=== PATIENT | female | born 1940 | race Caucasian/White ===

== ENCOUNTER 2020-12-27 12:11 | Inpatient (IN) | payer MEDICARE, OTHER ==
[~2020-12-27] VITALS: Ht 172.7 cm; Wt 86.9 kg
[2020-12-27 12:53] LABS: BASO % 0 % (0-3); EOS % 0 % (0-3); HEMATOCRIT 39.8 % (36.0-47.0); HEMOGLOBIN 13.6 g/dL (12.0-15.5); LYMPH # 1.3 x10^3/uL (1.0-4.8); LYMPH % 15 % (24-48); MEAN CORPUSCULAR HEMOGLOBIN 31 pg (25-35); MEAN CORPUSCULAR HGB CONC 34 g/dL (31-37); MEAN CORPUSCULAR VOLUME 90 fL (79-100); MONO # 0.6 x10^3/uL (0.0-1.1); MONO % 7 % (0-9); NEUT # 6.6 x10^3/uL (1.8-7.7); NEUT % 77 % (31-73); PLATELET COUNT 163 x10^3/uL (140-400); RED BLOOD COUNT 4.44 x10^6/uL (3.50-5.40); WHITE BLOOD COUNT 8.6 x10^3/uL (4.0-11.0)
--- NOTE | 2020-12-27 13:01 | EKG ---
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
[2020-12-27 13:18] LABS: CALCIUM 9.1 mg/dL (8.5-10.1); GFR 53.1; POTASSIUM 3.8 mmol/L (3.5-5.1)
--- NOTE | 2020-12-27 13:18 | RAD ---
XR CHEST 1V INDICATION: soa . COMPARISON STUDY: None. FINDINGS: Lungs: Normal lung volume. Prominent interstitial marked. Pleura: Small bilateral pleural effusions. Heart and Mediastinum: Cardiomegaly. Atherosclerosis of the thoracic aorta. IMPRESSION: 1. Prominent interstitial markings, which may reflect interstitial edema. 2. Small bilateral pleural effusions. Electronically signed by: Rosalio Pink MD (12/27/2020 1:16 PM) [facility]
[2020-12-27 13:23] LABS: ALBUMIN 3.8 g/dL (3.4-5.0); ALBUMIN/GLOBULIN RATIO 1.2 (1.0-1.7); TOTAL BILIRUBIN 1.6 mg/dL (0.2-1.0)
--- NOTE | 2020-12-27 13:31 | PHYS DOC ---
Past Medical History Past Medical History: Diabetes-Type II, Hypertension Additional Past Medical Histor: EDEMA Past Surgical History: No Surgical History Smoking Status: Never Smoker Alcohol Use: None General Adult EDM: Chief Complaint: shortness of air. HPI: HPI: Patient is a 80 year old female who presents to ER for evaluation of worsening trouble breathing and swelling of her leg, body and her face for over a month. Patient has been evaluated by her family physician, was put on some medication but did not get any better. Patient is having trouble breathing with exertion. She denies any cough or fever. Patient denies any COVID-19 exposure. Patient has history of aortic stenosis, her last echo cardiogram was done about 5 years ago with an EF of 55%. Review of Systems: Review of Systems: Constitutional: Denies fever or chills. [] Eyes: Denies change in visual acuity. [] HENT: Denies nasal congestion or sore throat. [] Respiratory: Denies cough, positive for shortness of breath. [] Cardiovascular: Denies chest pain, Positive for edema. [] GI: Denies abdominal pain, nausea, vomiting, bloody stools or diarrhea. [] : Denies dysuria. [] Musculoskeletal: Denies back pain or joint pain. [] Integument: Denies rash. [] Neurologic: Denies headache, focal weakness or sensory changes. [] Endocrine: Denies polyuria or polydipsia. [] Lymphatic: Denies swollen glands. [] Psychiatric: Denies depression or anxiety. [] Heart Score: Risk Factors: Risk Factors: DM, Current or recent (<one month) smoker, HTN, HLP, family his tory of CAD, obesity. Risk Scores: Score 0 - 3: 2.5% MACE over next 6 weeks - Discharge Home Score 4 - 6: 20.3% MACE over next 6 weeks - Admit for Clinical Observation Score 7 - 10: 72.7% MACE over next 6 weeks - Early Invasive Strategies Allergies: Allergies: Allergies Coded Allergies Type Severity Reaction Last Updated Verified No Known Drug Allergies 12/27/20 No Physical Exam: PE: Constitutional: Well developed, well nourished, no acute distress, non-toxic appearance. [] HENT: Normocephalic, atraumatic, bilateral external ears normal, oropharynx moist, no oral exudates, nose normal. [] Eyes: PERRLA, EOMI, conjunctiva normal, no discharge. Periorbital edema Neck: Normal range of motion, no tenderness, supple, no stridor. [] Cardiovascular:Heart rate regular rhythm, LOUD SYSTOLIC MURMUR, Lungs & Thorax: Bilateral breath sounds with rales to auscultation [] Abdomen: Bowel sounds normal, soft, no tenderness, no masses, no pulsatile masses. [] Skin: Warm, dry, no erythema, no rash. [] Back: No tenderness, no CVA tenderness. [] Extremities: No tenderness, no cyanosis, no clubbing, ROM intact, PITTING EDEMA 4 PLUS. Neurologic: Alert and oriented X 3, normal motor function, normal sensory function, no focal deficits noted. [] Psychologic: Affect normal, judgement normal, mood normal. [] Current Patient Data: Labs: Laboratory Tests Test 12/27/20 12:42 White Blood Count 8.6 x10^3/uL (4.0-11.0) Red Blood Count 4.44 x10^6/uL (3.50-5.40) Hemoglobin 13.6 g/dL (12.0-15.5) Hematocrit 39.8 % (36.0-47.0) Mean Corpuscular Volume 90 fL (79-100) Mean Corpuscular Hemoglobin 31 pg (25-35) Mean Corpuscular Hemoglobin Concent 34 g/dL (31-37) Red Cell Distribution Width 15.0 % (11.5-14.5) H Platelet Count 163 x10^3/uL (140-400) Neutrophils (%) (Auto) 77 % (31-73) H Lymphocytes (%) (Auto) 15 % (24-48) L Monocytes (%) (Auto) 7 % (0-9) Eosinophils (%) (Auto) 0 % (0-3) Basophils (%) (Auto) 0 % (0-3) Neutrophils # (Auto) 6.6 x10^3/uL (1.8-7.7) Lymphocytes # (Auto) 1.3 x10^3/uL (1.0-4.8) Monocytes # (Auto) 0.6 x10^3/uL (0.0-1.1) Eosinophils # (Auto) 0.0 x10^3/uL (0.0-0.7) Basophils # (Auto) 0.0 x10^3/uL (0.0-0.2) Sodium Level 121 mmol/L (136-145) L Potassium Level 3.8 mmol/L (3.5-5.1) Chloride Level 88 mmol/L (98-107) L Carbon Dioxide Level 21 mmol/L (21-32) Anion Gap 12 (6-14) Blood Urea Nitrogen 19 mg/dL (7-20) Creatinine 1.0 mg/dL (0.6-1.0) Estimated GFR (Cockcroft-Gault) 53.1 BUN/Creatinine Ratio 19 (6-20) Glucose Level 179 mg/dL (70-99) H Calcium Level 9.1 mg/dL (8.5-10.1) Total Bilirubin 1.6 mg/dL (0.2-1.0) H Aspartate Amino Transferase (AST) 43 U/L (15-37) H Alanine Aminotransferase (ALT) 33 U/L (14-59) Alkaline Phosphatase 89 U/L (46-116) Troponin I Quantitative < 0.017 ng/mL (0.000-0.055) QV-Ikp-S-Type Natriuretic Peptide 2856 pg/mL (0-449) H Total Protein 7.0 g/dL (6.4-8.2) Albumin 3.8 g/dL (3.4-5.0) Albumin/Globulin Ratio 1.2 (1.0-1.7) Laboratory Tests 12/27/20 12:42 Laboratory Tests 12/27/20 12:42 Vital Signs: Vital Signs Date Time Temp Pulse Resp B/P (MAP) Pulse Ox O2 Delivery O2 Flow Rate FiO2 12/27/20 12:11 97.6 97 27 190/117 (141) 94 Room Air 97.6 EKG: EKG: EKG was done at 11/13/2020, heart rate of 93 beats per minute, sinus rhythm, right bundle branch block. Radiology/Procedures: Radiology/Procedures: [][facility] [address] [place] [address] IMAGING REPORT Signed PATIENT: NUVIA BOONE ACCOUNT: [id number] : 1940 LOCATION: ER AGE: 80 SEX: F EXAM STATUS: REG ER ORD. PHYSICIAN: SHAHEEN DIEGO DO REASON: soa PROCEDURE: PORTABLE CHEST 1V XR CHEST 1V INDICATION: soa . COMPARISON STUDY: None. FINDINGS: Lungs: Normal lung volume. Prominent interstitial marked. Pleura: Small bilateral pleural effusions. Heart and Mediastinum: Cardiomegaly. Atherosclerosis of the thoracic aorta. IMPRESSION: 1. Prominent interstitial markings, which may reflect interstitial edema. 2. Small bilateral pleural effusions. Electronically signed by: Storm Pnik MD (12/27/2020 1:16 PM) [facility] DICTATED and SIGNED BY: STORM PINK MD DATE: 12/27/20 [id number] Course & Med Decision Making: Course & Med Decision Making Pertinent Labs and Imaging studies reviewed. (See chart for details) Patient is an 80-year-old female who has a history of aortic stenosis, suspect of congestive heart failure at this time, her sodium level is low but it is most likely due to hypervolumic stage. Teofilo Disclaimer: Teofilo Disclaimer: This electronic medical record was generated, in whole or in part, using a voice recognition dictation system. Departure Departure Impression: Primary Impression: Acute pulmonary edema Additional Impressions: Anasarca Hyponatremia Disposition: ADMITTED INPT THIS HOSP Admitting Physician: PAXTON (Dr. Schultz) Condition: STABLE Referrals: MARY ALAS MD (PCP) SHAHEEN DIEGO DO Dec 27, 2020 13:31
[2020-12-27] MEDS ORDERED: FUROSEMIDE 40 MG/4 ML VIAL. IVP ONE (14:15)
[2020-12-27 14:49] LABS: BILIRUBIN,URINE NEGATIVE (NEG); CLARITY,URINE CLOUDY; COLOR,URINE YELLOW; NITRITE,URINE POSITIVE (NEG); PROTEIN,URINE NEGATIVE (NEG-TRACE)
[2020-12-27] MEDS ORDERED: PROCHLORPERAZINE 25 MG SUPP.RECT. PR PRN (15:00)
[2020-12-27] MEDS ORDERED: HYDROcodone/APAP 5/325MG 1 TAB TABLET PO PRN (15:00)
[2020-12-27] MEDS ORDERED: ACETAMINOPHEN 325 MG TABLET. PO PRN (15:00)
[2020-12-27] MEDS ORDERED: LACTULOSE 20 GM/30 ML SOLUTION. PO PRN (15:00)
[2020-12-27] MEDS ORDERED: ELECTROLYTE (NON-ICU) PROTOCOL. MC PRN (15:00)
[2020-12-27] MEDS ORDERED: MORPHINE SULFATE 2 MG/ML VIAL. IV PRN (15:00)
[2020-12-27] MEDS ORDERED: 0.9 % SODIUM CHLORIDE 10 ML DISP.SYRIN. IV PRN (15:00)
[2020-12-27] MEDS ORDERED: ZOLPIDEM 5 MG TABLET. PO PRN (15:00)
[2020-12-27] MEDS ORDERED: MAGNESIUM HYDROXIDE 2,400 MG/30 ML ORAL.SUSP. PO PRN (15:00)
[2020-12-27] MEDS ORDERED: BISACODYL 10 MG SUPP.RECT. PR PRN (15:00)
[2020-12-27] MEDS ORDERED: ONDANSETRON PF 4 MG/2 ML VIAL. IVP PRN (15:00)
[2020-12-27 15:01] LABS: BACTERIA,URINE FEW /HPF (0-FEW); RBC,URINE 0 /HPF (0-2)
[2020-12-27 15:15] VITALS: BP 132/75
--- NOTE | 2020-12-27 15:45 | PDOC1 ---
History and Physical Date of Admission Date of Admission 12/27/2020 Identification/Chief Complaint Chief Complaint I cannot breathe Source Source: Chart review, Patient History of Present Illness History of Present Illness Patient is an 80-year-old female with past medical history of congestive heart failure who has been in her usual state of health until approximately 3 to 4 days prior to her admission when she started complaining of worsening dyspnea and lower extremity edema. The patient also reports orthopnea no paroxysmal nocturnal dyspnea no chest pain no palpitations no shortness of breath was reported. The patient was seen in the outpatient setting by her family physician who put her on most likely diuretics she does not remember the name of the medicine she received. Despite intervention in the outpatient setting her symptoms got worse she denies any fever chills no upper respiratory tract infection symptoms no generalized malaise no cough or sputum production no pleurisy has been reported. She denies abdominal discomfort nausea vomiting or diarrhea, she has been adherent to her medications but most likely in her case dietary transgression is the culprit. She does not cook for herself anymore since she lives by herself and most likely eats frozen meals and prepackaged prepared food and sodium rich soups that probably has put her in failure. She has history of aortic stenosis as well her last echocardiogram was reported by the emergency department physician 5 years ago with a preserved ejection fraction of 55%. The patient will be admitted for further treatment of her acute exacerbation of chronic heart failure which seems to be preserved ejection fraction and also severe hyponatremia. The patient denies any focal neurological deficits no dizziness no seizure-like activity no syncopal episodes no other complaints voiced. Plan of care explained detail all of her concerns addressed to the best my abilities reassurance provided Past Medical History Cardiovascular: CHF Past Surgical History Past Surgical History: No pertinent history Family History Family History: No Significant Social History Smoke: No ALCOHOL: none Drugs: None Current Problem List Problem List Problems Medical Problems: (1) Acute pulmonary edema Status: Acute (2) Anasarca Status: Acute (3) Hyponatremia Status: Acute Current Medications Current Medications Current Medications Medications (Trade) Dose Ordered Sig/Maren Start Time Stop Time Status Last Admin Dose Admin Acetaminophen (Tylenol) 650 mg PRN Q6HRS PRN 12/27/20 15:00 Acetaminophen/ Hydrocodone Bitart (Lortab 5/325) 1 tab PRN Q4HRS PRN 12/27/20 15:00 Bisacodyl (Dulcolax Supp) 10 mg PRN DAILY PRN 12/27/20 15:00 Carvedilol (Coreg) 12.5 mg [id number] 12/27/20 17:00 Enoxaparin Sodium (Lovenox 40mg Syringe) 40 mg Q24H 12/27/20 16:00 Furosemide (Lasix) 40 mg [id number] 12/27/20 16:00 Info (Non-Icu Electrolyte Protocol) 1 ea PRN DAILY PRN 12/27/20 15:00 Lactulose (Lactulose) 20 gm PRN Q12HR PRN 12/27/20 15:00 Losartan Potassium (Cozaar) 50 mg DAILY 12/28/20 09:00 Magnesium Hydroxide (Milk Of Magnesia) 2,400 mg PRN Q12HR PRN 12/27/20 15:00 Morphine Sulfate (Morphine Sulfate) 1 mg PRN Q1HR PRN 12/27/20 15:00 Ondansetron HCl (Zofran) 4 mg PRN Q6HRS PRN 12/27/20 15:00 Prochlorperazine (Compazine) 25 mg PRN Q12HR PRN 12/27/20 15:00 Senna/Docusate Sodium (Senna Plus) 1 tab BID 12/27/20 21:00 Sodium Chloride (Normal Saline Flush) 3 ml QSHIFT PRN 12/27/20 15:00 Zolpidem Tartrate (Ambien) 5 mg PRN QHS PRN 12/27/20 15:00 Allergies Allergies Allergies Coded Allergies Type Severity Reaction Last Updated Verified No Known Drug Allergies 12/27/20 No ROS Review of System CONSTITUTIONAL: No fever or chills EYES: No recent changes SKIN: No rash or itching CARDIOVASCULAR: No chest pain, syncope, palpitations, or edema RESPIRATORY: No SOB or cough GASTROINTESTINAL: No nausea, vomiting or abdominal pain NEUROLOGICAL: No headaches or weakness ENDOCRINE: No cold or heat intolerance GENITOURINARY: No urgency or frequency of urination MUSCULOSKELETAL: No back pain or joint pain LYMPHATICS: No enlarged lymph nodes PSYCHIATRIC: No anxiety or depression Physical Exam Physical Exam GEN.: No apparent distress. Alert and oriented. HEENT: Head is normocephalic, atraumatic NECK: Supple. LUNGS: crackles positive bilateral lung bases HEART: RRR, S1, S2 present. 2/6 systolic murmur Peripheral pulses intact ABDOMEN: Soft, nontender. Positive bowel sounds. EXTREMITIES: Without any cyanosis. 3+ edema NEUROLOGIC: Normal speech, normal tone PSYCHIATRIC: Normal affect, normal mood. SKIN: No ulcerations Vitals Vitals Vital Signs Date Time Temp Pulse Resp B/P (MAP) Pulse Ox O2 Delivery O2 Flow Rate FiO2 12/27/20 14:23 88 22 156/75 (102) 96 Room Air 12/27/20 12:11 97.6 97.6 Labs Labs Laboratory Tests Test 12/27/20 12:42 12/27/20 14:32 White Blood Count 8.6 x10^3/uL (4.0-11.0) Red Blood Count 4.44 x10^6/uL (3.50-5.40) Hemoglobin 13.6 g/dL (12.0-15.5) Hematocrit 39.8 % (36.0-47.0) Mean Corpuscular Volume 90 fL (79-100) Mean Corpuscular Hemoglobin 31 pg (25-35) Mean Corpuscular Hemoglobin Concent 34 g/dL (31-37) Red Cell Distribution Width 15.0 % (11.5-14.5) Platelet Count 163 x10^3/uL (140-400) Neutrophils (%) (Auto) 77 % (31-73) Lymphocytes (%) (Auto) 15 % (24-48) Monocytes (%) (Auto) 7 % (0-9) Eosinophils (%) (Auto) 0 % (0-3) Basophils (%) (Auto) 0 % (0-3) Neutrophils # (Auto) 6.6 x10^3/uL (1.8-7.7) Lymphocytes # (Auto) 1.3 x10^3/uL (1.0-4.8) Monocytes # (Auto) 0.6 x10^3/uL (0.0-1.1) Eosinophils # (Auto) 0.0 x10^3/uL (0.0-0.7) Basophils # (Auto) 0.0 x10^3/uL (0.0-0.2) Sodium Level 121 mmol/L (136-145) Potassium Level 3.8 mmol/L (3.5-5.1) Chloride Level 88 mmol/L (98-107) Carbon Dioxide Level 21 mmol/L (21-32) Anion Gap 12 (6-14) Blood Urea Nitrogen 19 mg/dL (7-20) Creatinine 1.0 mg/dL (0.6-1.0) Estimated GFR (Cockcroft-Gault) 53.1 BUN/Creatinine Ratio 19 (6-20) Glucose Level 179 mg/dL (70-99) Calcium Level 9.1 mg/dL (8.5-10.1) Magnesium Level 1.8 mg/dL (1.8-2.4) Total Bilirubin 1.6 mg/dL (0.2-1.0) Aspartate Amino Transf (AST/SGOT) 43 U/L (15-37) Alanine Aminotransferase (ALT/SGPT) 33 U/L (14-59) Alkaline Phosphatase 89 U/L (46-116) Troponin I Quantitative < 0.017 ng/mL (0.000-0.055) SD-Blg-H-Type Natriuretic Peptide 2856 pg/mL (0-449) Total Protein 7.0 g/dL (6.4-8.2) Albumin 3.8 g/dL (3.4-5.0) Albumin/Globulin Ratio 1.2 (1.0-1.7) Urine Collection Type Unknown Urine Color Yellow Urine Clarity Cloudy Urine pH 6.0 (<5.0-8.0) Urine Specific [place] 1.015 (1.000-1.030) Urine Protein Negative mg/dL (NEG-TRACE) Urine Glucose (UA) Negative mg/dL (NEG) Urine Ketones (Stick) Negative mg/dL (NEG) Urine Blood Negative (NEG) Urine Nitrite Positive (NEG) Urine Bilirubin Negative (NEG) Urine Urobilinogen Dipstick 1.0 mg/dL (0.2 mg/dL) Urine Leukocyte Esterase Moderate (NEG) Urine RBC 0 /HPF (0-2) Urine WBC 11-20 /HPF (0-4) Urine Squamous Epithelial Cells Few /LPF Urine Bacteria Few /HPF (0-FEW) Laboratory Tests Test 12/27/20 12:42 12/27/20 14:32 White Blood Count 8.6 x10^3/uL (4.0-11.0) Red Blood Count 4.44 x10^6/uL (3.50-5.40) Hemoglobin 13.6 g/dL (12.0-15.5) Hematocrit 39.8 % (36.0-47.0) Mean Corpuscular Volume 90 fL (79-100) Mean Corpuscular Hemoglobin 31 pg (25-35) Mean Corpuscular Hemoglobin Concent 34 g/dL (31-37) Red Cell Distribution Width 15.0 % (11.5-14.5) Platelet Count 163 x10^3/uL (140-400) Neutrophils (%) (Auto) 77 % (31-73) Lymphocytes (%) (Auto) 15 % (24-48) Monocytes (%) (Auto) 7 % (0-9) Eosinophils (%) (Auto) 0 % (0-3) Basophils (%) (Auto) 0 % (0-3) Neutrophils # (Auto) 6.6 x10^3/uL (1.8-7.7) Lymphocytes # (Auto) 1.3 x10^3/uL (1.0-4.8) Monocytes # (Auto) 0.6 x10^3/uL (0.0-1.1) Eosinophils # (Auto) 0.0 x10^3/uL (0.0-0.7) Basophils # (Auto) 0.0 x10^3/uL (0.0-0.2) Sodium Level 121 mmol/L (136-145) Potassium Level 3.8 mmol/L (3.5-5.1) Chloride Level 88 mmol/L (98-107) Carbon Dioxide Level 21 mmol/L (21-32) Anion Gap 12 (6-14) Blood Urea Nitrogen 19 mg/dL (7-20) Creatinine 1.0 mg/dL (0.6-1.0) Estimated GFR (Cockcroft-Gault) 53.1 BUN/Creatinine Ratio 19 (6-20) Glucose Level 179 mg/dL (70-99) Calcium Level 9.1 mg/dL (8.5-10.1) Magnesium Level 1.8 mg/dL (1.8-2.4) Total Bilirubin 1.6 mg/dL (0.2-1.0) Aspartate Amino Transf (AST/SGOT) 43 U/L (15-37) Alanine Aminotransferase (ALT/SGPT) 33 U/L (14-59) Alkaline Phosphatase 89 U/L (46-116) Troponin I Quantitative < 0.017 ng/mL (0.000-0.055) FH-Kzl-W-Type Natriuretic Peptide 2856 pg/mL (0-449) Total Protein 7.0 g/dL (6.4-8.2) Albumin 3.8 g/dL (3.4-5.0) Albumin/Globulin Ratio 1.2 (1.0-1.7) Urine Collection Type Unknown Urine Color Yellow Urine Clarity Cloudy Urine pH 6.0 (<5.0-8.0) Urine Specific [place] 1.015 (1.000-1.030) Urine Protein Negative mg/dL (NEG-TRACE) Urine Glucose (UA) Negative mg/dL (NEG) Urine Ketones (Stick) Negative mg/dL (NEG) Urine Blood Negative (NEG) Urine Nitrite Positive (NEG) Urine Bilirubin Negative (NEG) Urine Urobilinogen Dipstick 1.0 mg/dL (0.2 mg/dL) Urine Leukocyte Esterase Moderate (NEG) Urine RBC 0 /HPF (0-2) Urine WBC 11-20 /HPF (0-4) Urine Squamous Epithelial Cells Few /LPF Urine Bacteria Few /HPF (0-FEW) VTE Prophylaxis Ordered VTE Prophylaxis Devices: No VTE Pharmacological Prophylaxi: Yes Assessment/Plan Assessment/Plan Acute exacerbation of congestive heart failure chronic in nature with preserved ejection fraction Severe hyponatremia Dietary transgressions Hyperglycemia Bilateral pleural effusions Plan Diurese patient with Lasix IV Daily weight Consult cardiology We will do urine electrolytes and urine osmolality as well as serum osmolality for hyponatremia work-up Check thyroid function test and B12 levels as well Resume home medications once available for review DVT prophylaxis with Lovenox Further recommendations based on the clinical course Plan of care explained detail to the patient and her son greater than 60 minutes were spent in the admitting process the patient in [id number] contact review of chart counseling coordination of care Justifications for Admission Other Justification WEST DOBSON MD Dec 27, 2020 15:45
[2020-12-27 16:29] LABS: FREE T4 1.54 ng/dL (0.76-1.46); THYROID STIM HORMONE (TSH) 3.423 uIU/mL (0.358-3.74)
[2020-12-27] MEDS ORDERED: DEXTROSE 50% 25 GM / 50ML DISP.SYRIN. IV PRN (17:30)
[2020-12-27] MEDS: ENOXAPARIN 40 MG/0.4 ML SYRINGE. SQ SCH (17:47)
[2020-12-27] MEDS: FUROSEMIDE 40 MG/4 ML VIAL. IVP SCH (17:47)
[2020-12-27] MEDS: CARVEDILOL 12.5 MG TABLET. PO SCH (17:47)
[2020-12-27] MEDS ORDERED: METF-658 PO (18:16)
[2020-12-27] MEDS ORDERED: FURO-68 PO (18:16)
[2020-12-27] MEDS ORDERED: LOSA100T14 PO (18:16)
[2020-12-27] MEDS ORDERED: POTA10TA12 PO (18:16)
[2020-12-27 19:10] VITALS: BP 128/61
[2020-12-27] MEDS: SENNOSIDES/DOCUSATE 8.6/50MG TABLET. PO SCH (21:23)
[2020-12-27 23:35] VITALS: BP 122/73
[2020-12-28] VITALS (19 sets, daily range): BP systolic 101–147; BP diastolic 48–84
[2020-12-28 01:09] LABS: HEMOGLOBIN A1C 6.4 % (4.8-5.6)
[2020-12-28] MEDS: INSULIN LISPRO 300 UNITS/3 ML VIAL. SQ SCH ×2 (08:00→12:00)
[2020-12-28] MEDS ORDERED: LOSARTAN POTASSIUM 50 MG TABLET. PO SCH (09:00)
[2020-12-28 09:02] LABS: BASO % 0 % (0-3); EOS % 0 % (0-3); HEMOGLOBIN 12.5 g/dL (12.0-15.5); LYMPH % 19 % (24-48); MEAN CORPUSCULAR HEMOGLOBIN 30 pg (25-35); MEAN CORPUSCULAR HGB CONC 34 g/dL (31-37); MEAN CORPUSCULAR VOLUME 89 fL (79-100); MONO # 0.4 x10^3/uL (0.0-1.1); MONO % 7 % (0-9); NEUT # 3.8 x10^3/uL (1.8-7.7); NEUT % 74 % (31-73); PLATELET COUNT 134 x10^3/uL (140-400); RED BLOOD COUNT 4.17 x10^6/uL (3.50-5.40); WHITE BLOOD COUNT 5.2 x10^3/uL (4.0-11.0)
[2020-12-28] MEDS: SENNOSIDES/DOCUSATE 8.6/50MG TABLET. PO SCH ×2 (09:31→21:29)
[2020-12-28] MEDS: CARVEDILOL 12.5 MG TABLET. PO SCH (09:32)
[2020-12-28] MEDS: FUROSEMIDE 40 MG/4 ML VIAL. IVP SCH ×2 (09:33→16:11)
--- NOTE | 2020-12-28 10:00 | PDOC ---
[employer] PROGRESS NOTE Date of Service DOS: DATE: 12/28/20 TIME: 09:39 Chief Complaint Chief Complaint Assessment/Plan Acute exacerbation of congestive heart failure chronic in nature with preserved ejection fraction Severe hyponatremia Dietary transgressions Hyperglycemia Bilateral pleural effusions Plan Diurese patient with Lasix IV Daily weight Consult cardiology We will do urine electrolytes and urine osmolality as well as serum osmolality for hyponatremia work-up Check thyroid function test and B12 levels as well Resume home medications once available for review DVT prophylaxis with Lovenox Further recommendations based on the clinical course Plan of care explained detail to the patient and her son greater than 60 minutes were spent in the admitting process the patient in [id number] contact review of chart counseling coordination of care History of Present Illness History of Present Illness Patient is an 80-year-old female with past medical history of congestive heart failure who has been in her usual state of health until approximately 3 to 4 days prior to her admission when she started complaining of worsening dyspnea and lower extremity edema. The patient also reports orthopnea no paroxysmal nocturnal dyspnea no chest pain no palpitations no shortness of breath was reported. The patient was seen in the outpatient setting by her family physician who put her on most likely diuretics she does not remember the name of the medicine she received. Despite intervention in the outpatient setting her symptoms got worse she denies any fever chills no upper respiratory tract infection symptoms no generalized malaise no cough or sputum production no pleurisy has been reported. She denies abdominal discomfort nausea vomiting or diarrhea, she has been adherent to her medications but most likely in her case dietary transgression is the culprit. She does not cook for herself anymore since she lives by herself and most likely eats frozen meals and prepackaged prepared food and sodium rich soups that probably has put her in failure. She has history of aortic stenosis as well her last echocardiogram was reported by the emergency department physician 5 years ago with a preserved ejection fraction of 55%. The patient will be admitted for further treatment of her acute exacerbation of chronic heart failure which seems to be preserved ejection fraction and also severe hyponatremia. The patient denies any focal neurological deficits no dizziness no seizure-like activity no syncopal episodes no other complaints voiced. Plan of care expl ained detail all of her concerns addressed to the best my abilities reassurance provided /3: Patient seen and evaluated. Slightly short of breath with breathing on room air. He does not note any significant improvement in her leg swelling, has been urinating after Lasix, 590 mL urine output. Continue Lasix diuresis. She is aware of her history of aortic stenosis. Vitals/I&O Vitals/I&O: Vital Signs Date Time Temp Pulse Resp B/P (MAP) Pulse Ox O2 Delivery O2 Flow Rate FiO2 12/28/20 09:32 72 126/82 12/28/20 07:00 96.4 20 96 Room Air 96.4 I & O 12/27/20 12/27/20 12/28/20 15:00 23:00 07:00 Intake Total 360 ml 200 ml Output Total 900 ml 250 ml Balance -540 ml -50 ml Physical Exam General: Alert, Oriented X3, Cooperative, No acute distress Heart: Regular rate, Other (Systolic murmur) Lungs: Other (Faint crackles) Abdomen: Normal bowel sounds, Soft Extremities: Other (+3 edema bilateral lower extremities) Skin: No rashes, No breakdown Labs Labs: Laboratory Tests Test 12/27/20 12:42 12/27/20 14:32 12/27/20 16:48 12/27/20 21:22 White Blood Count 8.6 x10^3/uL (4.0-11.0) Red Blood Count 4.44 x10^6/uL (3.50-5.40) Hemoglobin 13.6 g/dL (12.0-15.5) Hematocrit 39.8 % (36.0-47.0) Mean Corpuscular Volume 90 fL (79-100) Mean Corpuscular Hemoglobin 31 pg (25-35) Mean Corpuscular Hemoglobin Concent 34 g/dL (31-37) Red Cell Distribution Width 15.0 % (11.5-14.5) Platelet Count 163 x10^3/uL (140-400) Neutrophils (%) (Auto) 77 % (31-73) Lymphocytes (%) (Auto) 15 % (24-48) Monocytes (%) (Auto) 7 % (0-9) Eosinophils (%) (Auto) 0 % (0-3) Basophils (%) (Auto) 0 % (0-3) Neutrophils # (Auto) 6.6 x10^3/uL (1.8-7.7) Lymphocytes # (Auto) 1.3 x10^3/uL (1.0-4.8) Monocytes # (Auto) 0.6 x10^3/uL (0.0-1.1) Eosinophils # (Auto) 0.0 x10^3/uL (0.0-0.7) Basophils # (Auto) 0.0 x10^3/uL (0.0-0.2) Sodium Level 121 mmol/L (136-145) Potassium Level 3.8 mmol/L (3.5-5.1) Chloride Level 88 mmol/L (98-107) Carbon Dioxide Level 21 mmol/L (21-32) Anion Gap 12 (6-14) Blood Urea Nitrogen 19 mg/dL (7-20) Creatinine 1.0 mg/dL (0.6-1.0) Estimated GFR (Cockcroft-Gault) 53.1 BUN/Creatinine Ratio 19 (6-20) Glucose Level 179 mg/dL (70-99) Hemoglobin A1c 6.4 % (4.8-5.6) Calcium Level 9.1 mg/dL (8.5-10.1) Magnesium Level 1.8 mg/dL (1.8-2.4) Total Bilirubin 1.6 mg/dL (0.2-1.0) Aspartate Amino Transf (AST/SGOT) 43 U/L (15-37) Alanine Aminotransferase (ALT/SGPT) 33 U/L (14-59) Alkaline Phosphatase 89 U/L (46-116) Troponin I Quantitative < 0.017 ng/mL (0.000-0.055) MA-Wzd-B-Type Natriuretic Peptide 2856 pg/mL (0-449) Total Protein 7.0 g/dL (6.4-8.2) Albumin 3.8 g/dL (3.4-5.0) Albumin/Globulin Ratio 1.2 (1.0-1.7) Vitamin B12 Level 1310 pg/mL (247-911) Thyroid Stimulating Hormone (TSH) 3.423 uIU/mL (0.358-3.74) Free Thyroxine 1.54 ng/dL (0.76-1.46) Urine Collection Type Unknown Urine Color Yellow Urine Clarity Cloudy Urine pH 6.0 (<5.0-8.0) Urine Specific [place] 1.015 (1.000-1.030) Urine Protein Negative mg/dL (NEG-TRACE) Urine Glucose (UA) Negative mg/dL (NEG) Urine Ketones (Stick) Negative mg/dL (NEG) Urine Blood Negative (NEG) Urine Nitrite Positive (NEG) Urine Bilirubin Negative (NEG) Urine Urobilinogen Dipstick 1.0 mg/dL (0.2 mg/dL) Urine Leukocyte Esterase Moderate (NEG) Urine RBC 0 /HPF (0-2) Urine WBC 11-20 /HPF (0-4) Urine Squamous Epithelial Cells Few /LPF Urine Bacteria Few /HPF (0-FEW) Glucose (Fingerstick) 150 mg/dL (70-99) 231 mg/dL (70-99) Test 12/28/20 08:07 12/28/20 08:43 White Blood Count 5.2 x10^3/uL (4.0-11.0) Red Blood Count 4.17 x10^6/uL (3.50-5.40) Hemoglobin 12.5 g/dL (12.0-15.5) Hematocrit 37.0 % (36.0-47.0) Mean Corpuscular Volume 89 fL (79-100) Mean Corpuscular Hemoglobin 30 pg (25-35) Mean Corpuscular Hemoglobin Concent 34 g/dL (31-37) Red Cell Distribution Width 15.0 % (11.5-14.5) Platelet Count 134 x10^3/uL (140-400) Neutrophils (%) (Auto) 74 % (31-73) Lymphocytes (%) (Auto) 19 % (24-48) Monocytes (%) (Auto) 7 % (0-9) Eosinophils (%) (Auto) 0 % (0-3) Basophils (%) (Auto) 0 % (0-3) Neutrophils # (Auto) 3.8 x10^3/uL (1.8-7.7) Lymphocytes # (Auto) 1.0 x10^3/uL (1.0-4.8) Monocytes # (Auto) 0.4 x10^3/uL (0.0-1.1) Eosinophils # (Auto) 0.0 x10^3/uL (0.0-0.7) Basophils # (Auto) 0.0 x10^3/uL (0.0-0.2) Glucose (Fingerstick) 148 mg/dL (70-99) Assessment and Plan Assessmemt and Plan Problems Medical Problems: (1) Acute pulmonary edema Status: Acute (2) Anasarca Status: Acute (3) Hyponatremia Status: Acute Comment Review of Relevant I have reviewed the following items david (where applicable) has been applied. Medications: Current Medications Medications (Trade) Dose Ordered Sig/Maren Route PRN Reason Start Time Stop Time Status Last Admin Dose Admin Furosemide (Lasix) 40 mg 1X ONCE IVP 12/27/20 14:15 12/27/20 14:16 DC 12/27/20 14:39 Losartan Potassium (Cozaar) 50 mg DAILY PO 12/28/20 09:00 12/28/20 09:32 Furosemide (Lasix) 40 mg BID92 IVP 12/27/20 16:00 12/28/20 09:33 Carvedilol (Coreg) 12.5 mg BIDWMEALS PO 12/27/20 17:00 12/28/20 09:32 Enoxaparin Sodium (Lovenox 40mg Syringe) 40 mg Q24H SQ 12/27/20 16:00 12/27/20 17:47 Senna/Docusate Sodium (Senna Plus) 1 tab BID PO 12/27/20 21:00 12/28/20 09:31 Justifications for Admission Other Justification YOCASTA GAY MD Dec 28, 2020 10:00
--- NOTE | 2020-12-28 10:14 | PDOC2 ---
JACOB STALLWORTH ASSEMBLY LINE SUPERVISOR 12/28/20 1014: CARDIAC CONSULT DATE OF CONSULT Date of Consult DATE: 12/28/20 TIME: 10:00 REASON FOR CONSULT Reason for Consult: Acute pulmonary edema REFERRING PHYSICIAN Referring Physician: Antoine SOURCE Source: Chart review, Patient HISTORY OF PRESENT ILLNESS HISTORY OF PRESENT ILLNESS This is a pleasant 80 yo female admitted for complains of SOA. Reports that she has been having SOA and leg swelling in the last month but increased symptoms in the last week. Reports increasing SOA particularly with activity and increased leg swelling. Positive for orthopnea and PND. Denies any palpitations, chest pain. No nausea or vomiting and her appetite has decreased. No diarrhea. No anosmia, ageusia, fever or chills. No symptoms of apssing out or frequent dizziness. Denies any CAD or past arrhythmias. No hx of VTE or bleeding issues. PAST MEDICAL HISTORY Cardiovascular: HTN, Hyperlipidemia (statin intolerant), Aortic stenosis, Valve insufficiency Pulmonary: No pertinent hx CENTRAL NERVOUS SYSTEM: Other (No pertinent history) GI: No pertinent hx Heme/Onc: No pertinent hx Hepatobiliary: No pertinent hx Psych: No pertinent hx Musculoskeletal: low back pain (lumbar radiculopathy), Osteoarthritis Rheumatologic: No pertinent hx Infectious disease: No pertinent hx ENT: Other (cataract) Renal/: Chronic renal insuff (CKD3) Endocrine: Diabetes (2) PAST SURGICAL HISTORY Past Surgical History: Cataract Removal FAMILY HISTORY Family History: Heart Disease (mother) SOCIAL HISTORY Smoke: Quit ALCOHOL: none Drugs: None Lives: with Family CURRENT MEDICATIONS CURRENT MEDICATIONS Current Medications Medications (Trade) Dose Ordered Sig/Maren Route PRN Reason Start Time Stop Time Status Last Admin Dose Admin Furosemide (Lasix) 40 mg 1X ONCE IVP 12/27/20 14:15 12/27/20 14:16 DC 12/27/20 14:39 Losartan Potassium (Cozaar) 50 mg DAILY PO 12/28/20 09:00 12/28/20 09:32 Furosemide (Lasix) 40 mg BID92 IVP 12/27/20 16:00 12/28/20 09:33 Carvedilol (Coreg) 12.5 mg BIDWMEALS PO 12/27/20 17:00 12/28/20 09:32 Enoxaparin Sodium (Lovenox 40mg Syringe) 40 mg Q24H SQ 12/27/20 16:00 12/27/20 17:47 Senna/Docusate Sodium (Senna Plus) 1 tab BID PO 12/27/20 21:00 12/28/20 09:31 ALLERGIES ALLERGIES: Coded Allergies: No Known Drug Allergies (Unverified , 12/27/20) ROS Review of System 14 point ROS evaluated with pertinent positives noted per HPI PHYSICAL EXAM General: Alert, Oriented X3, Cooperative, No acute distress HEENT: Atraumatic, Mucous membr. moist/pink Heart: Regular rate (SR) Abdomen: Soft, Other (anasarca) Extremities: No cyanosis Skin: No breakdown, No significant lesion Neuro: Normal speech, Sensation intact Psych/Mental Status: Mental status NL, Mood NL MUSCULOSKELETAL: Osteoarthritic changes both hands VITALS/I&O VITALS/I&O: Vital Signs Date Time Temp Pulse Resp B/P (MAP) Pulse Ox O2 Delivery O2 Flow Rate FiO2 12/28/20 09:32 72 126/82 12/28/20 07:00 96.4 20 96 Room Air 96.4 I & O 12/27/20 12/27/20 12/28/20 15:00 23:00 07:00 Intake Total 360 ml 200 ml Output Total 900 ml 250 ml Balance -540 ml -50 ml LABS Lab: Laboratory Tests Test 12/27/20 12:42 12/27/20 14:32 12/27/20 16:48 12/27/20 21:22 White Blood Count 8.6 x10^3/uL (4.0-11.0) Red Blood Count 4.44 x10^6/uL (3.50-5.40) Hemoglobin 13.6 g/dL (12.0-15.5) Hematocrit 39.8 % (36.0-47.0) Mean Corpuscular Volume 90 fL (79-100) Mean Corpuscular Hemoglobin 31 pg (25-35) Mean Corpuscular Hemoglobin Concent 34 g/dL (31-37) Red Cell Distribution Width 15.0 % (11.5-14.5) H Platelet Count 163 x10^3/uL (140-400) Neutrophils (%) (Auto) 77 % (31-73) H Lymphocytes (%) (Auto) 15 % (24-48) L Monocytes (%) (Auto) 7 % (0-9) Eosinophils (%) (Auto) 0 % (0-3) Basophils (%) (Auto) 0 % (0-3) Neutrophils # (Auto) 6.6 x10^3/uL (1.8-7.7) Lymphocytes # (Auto) 1.3 x10^3/uL (1.0-4.8) Monocytes # (Auto) 0.6 x10^3/uL (0.0-1.1) Eosinophils # (Auto) 0.0 x10^3/uL (0.0-0.7) Basophils # (Auto) 0.0 x10^3/uL (0.0-0.2) Sodium Level 121 mmol/L (136-145) L Potassium Level 3.8 mmol/L (3.5-5.1) Chloride Level 88 mmol/L (98-107) L Carbon Dioxide Level 21 mmol/L (21-32) Anion Gap 12 (6-14) Blood Urea Nitrogen 19 mg/dL (7-20) Creatinine 1.0 mg/dL (0.6-1.0) Estimated GFR (Cockcroft-Gault) 53.1 BUN/Creatinine Ratio 19 (6-20) Glucose Level 179 mg/dL (70-99) H Hemoglobin A1c 6.4 % (4.8-5.6) H Calcium Level 9.1 mg/dL (8.5-10.1) Magnesium Level 1.8 mg/dL (1.8-2.4) Total Bilirubin 1.6 mg/dL (0.2-1.0) H Aspartate Amino Transferase (AST) 43 U/L (15-37) H Alanine Aminotransferase (ALT) 33 U/L (14-59) Alkaline Phosphatase 89 U/L (46-116) Troponin I Quantitative < 0.017 ng/mL (0.000-0.055) EM-Vgn-T-Type Natriuretic Peptide 2856 pg/mL (0-449) H Total Protein 7.0 g/dL (6.4-8.2) Albumin 3.8 g/dL (3.4-5.0) Albumin/Globulin Ratio 1.2 (1.0-1.7) Vitamin B12 Level 1310 pg/mL (247-911) H Thyroid Stimulating Hormone (TSH) 3.423 uIU/mL (0.358-3.74) Free Thyroxine 1.54 ng/dL (0.76-1.46) H Urine Collection Type Unknown Urine Color Yellow Urine Clarity Cloudy Urine pH 6.0 (<5.0-8.0) Urine Specific [place] 1.015 (1.000-1.030) Urine Protein Negative mg/dL (NEG-TRACE) Urine Glucose (UA) Negative mg/dL (NEG) Urine Ketones (Stick) Negative mg/dL (NEG) Urine Blood Negative (NEG) Urine Nitrite Positive (NEG) Urine Bilirubin Negative (NEG) Urine Urobilinogen Dipstick 1.0 mg/dL (0.2 mg/dL) Urine Leukocyte Esterase Moderate (NEG) Urine RBC 0 /HPF (0-2) Urine WBC 11-20 /HPF (0-4) Urine Squamous Epithelial Cells Few /LPF Urine Bacteria Few /HPF (0-FEW) Glucose (Fingerstick) 150 mg/dL (70-99) H 231 mg/dL (70-99) H Test 12/28/20 08:07 12/28/20 08:43 White Blood Count 5.2 x10^3/uL (4.0-11.0) Red Blood Count 4.17 x10^6/uL (3.50-5.40) Hemoglobin 12.5 g/dL (12.0-15.5) Hematocrit 37.0 % (36.0-47.0) Mean Corpuscular Volume 89 fL (79-100) Mean Corpuscular Hemoglobin 30 pg (25-35) Mean Corpuscular Hemoglobin Concent 34 g/dL (31-37) Red Cell Distribution Width 15.0 % (11.5-14.5) H Platelet Count 134 x10^3/uL (140-400) L Neutrophils (%) (Auto) 74 % (31-73) H Lymphocytes (%) (Auto) 19 % (24-48) L Monocytes (%) (Auto) 7 % (0-9) Eosinophils (%) (Auto) 0 % (0-3) Basophils (%) (Auto) 0 % (0-3) Neutrophils # (Auto) 3.8 x10^3/uL (1.8-7.7) Lymphocytes # (Auto) 1.0 x10^3/uL (1.0-4.8) Monocytes # (Auto) 0.4 x10^3/uL (0.0-1.1) Eosinophils # (Auto) 0.0 x10^3/uL (0.0-0.7) Basophils # (Auto) 0.0 x10^3/uL (0.0-0.2) Glucose (Fingerstick) 148 mg/dL (70-99) H Laboratory Tests 12/27/20 12:42 12/28/20 08:07 Laboratory Tests 12/27/20 12:42 ECHOCARDIOGRAM ECHOCARDIOGRAM <Conclusion> The left ventricle is normal size. Left ventricle systolic function is normal. The Ejection Fraction is 55-60%. There is borderline concentric left ventricular hypertrophy. Calculated aortic valve area is 1.0 cm2 with maximum pressure gradient of 36 mmHg and mean pressure gradient of 20 mmHg. Doppler and color-flow analysis revealed moderate aortic stenosis. Doppler and Color Flow revealed no significant aortic regurgitation. Doppler and Color Flow revealed mild mitral regurgitation. Doppler and Color Flow revealed mild tricuspid regurgitation. The PA pressure was estimated at 25 mmHg. DATE: 06/01/16920 ASSESSMENT/PLAN ASSESSMENT/PLAN 1. Acute CHF with possible diastolic dysfunction 2. Suspect severe 3. Accelerated HTN: better 4. HLP: myalgia with statins 5. DM2: per PCP 6. PUI: low suspicion 7. Hypotonic hypervolemic hyponatremia 8. UTI: per PCP Recommendations 1. TTE 2. BMP and Mg this am. Continue with lasix therapy. 3. Coreg has been started 4. Lipids, TSH. Will consider for zetia and PCSK9i pending lipid level MICAELA GARCIA MD 12/28/204: CARDIAC CONSULT ASSESSMENT/PLAN ASSESSMENT/PLAN Pt. seen and examined. Agree with above [employer] note. Discussed critical situation with grand daughter Jie who is an ICU nurse. Options include conservative mgmt and medical therapy with consultation of hospice services or aggressive care with referral to [facility] for urgent TAVR. Family initially leaning towards hospice, they will make final decision t omorrow. Thanks. JACOB STALLWORTH APRN Dec 28, 2020 10:14 MICAELA GARCIA MD Dec 28, 2020 22:14
[2020-12-28 10:47] LABS: CREATININE 1.2 mg/dL (0.6-1.0); MAGNESIUM 1.8 mg/dL (1.8-2.4); POTASSIUM 4.4 mmol/L (3.5-5.1)
[2020-12-28 10:50] LABS: CHOLESTEROL/HDL RATIO 3.9
--- NOTE | 2020-12-28 11:49 | NUR ---
Approximately 1145 patient was walking with PT in hallway and began to sway while standing. PT then grabbed a chair for patient to sit and as she sat she began to mumble and become disoriented. Checking the monitor the patients heart rate was sinus berta in the 40's and began to drop. Patient was still trying to make some words however her speech was very slurred. Was able to get patient to room and transferred her to bed with assistance from PT and OT. Patient began to agonal breath and stop responding verbally. Checked for pulse and found only a very faint pulse with a heart rate in 20's. Patients was cyanotic and still agonal breaths. Pressed code button and began compressions.
[2020-12-28] MEDS ORDERED: ATROPINE 0.5 MG/5 ML DISP.SYRINGE. ONE (12:00)
[2020-12-28] MEDS ORDERED: CALCIUM CHLORIDE 1,000 MG/10 ML DISP.SYRIN ONE (12:00)
[2020-12-28] MEDS ORDERED: SODIUM BICARB ADULT 8.4% 50 MEQ/50 ML DISP.SYRIN. ONE (12:00)
[2020-12-28] MEDS ORDERED: DOPamine 400MG/250ML PREMIX 400 MG/250 ML BAG IV ONE (12:00)
[2020-12-28] MEDS ORDERED: EPINEPHrine SYRINGE 1 MG/10 ML SYRINGE ONE (12:00)
[2020-12-28] MEDS ORDERED: MIDAZOLAM HCL/PF 5 MG/5 ML VIAL. ONE (12:00)
--- NOTE | 2020-12-28 12:15 | NUR ---
Called son (Adin) and getting multiple busy signals. Unable to leave message. Telephoned alternate number on sheet for daughter in law and left message to call.
[2020-12-28] MEDS ORDERED: MIDAZOLAM 100mg/100ml NS BAG 100 ML IV PRN (12:45)
[2020-12-28] MEDS ORDERED: MIDAZOLAM HCL/PF 2 MG/2 ML VIAL. IV ONE (12:45)
--- NOTE | 2020-12-28 13:09 | PDOC ---
Provider Note Date of Service: DATE: 12/28/20 TIME: 12:56 Provider Note Anesthesiology Called to emergently intubate pt. during Code Blue. Pt. unresponsive with inadequate respiratory effort. Intubated with 7.5 ETT, first attempt, direct visualization of vocal cords, using MAC 3 laryngoscope. +ETCO2, BS=B. CXR pending to confirm placement. Further care per primary team. Hung Aparicio MD Justifications for Admission Other Justification CHAYO APARICIO MD Dec 28, 2020 13:09
[2020-12-28] MEDS ORDERED: ELECTROLYTE (ICU) PROTOCOL. MC PRN (13:15)
--- NOTE | 2020-12-28 13:15 | NUR ---
SS following for discharge planning. SS reviewed pt chart and discussed with pt RN. Pt is from home and is currently on room air. Pt coded two times after working with therapy. Pt now intubated and transferred to room 107. Not stable. SS will continue to follow for discharge planning.
[2020-12-28] MEDS: NOREPINEPHRINE VIAL 8 MG in IV DEXTROSE 5% 250 ML IV PRN ×3 (13:20→20:36)
[2020-12-28] MEDS: MIDAZOLAM 100mg/100ml NS BAG 100 ML IV PRN ×2 (13:36→20:37)
[2020-12-28 13:40] LABS: ALBUMIN 3.1 g/dL (3.4-5.0); ALBUMIN/GLOBULIN RATIO 0.9 (1.0-1.7); CALCIUM 9.2 mg/dL (8.5-10.1); CREATININE 1.3 mg/dL (0.6-1.0); GFR 39.2; POTASSIUM 3.6 mmol/L (3.5-5.1); TOTAL BILIRUBIN 1.3 mg/dL (0.2-1.0); TOTAL PROTEIN 6.5 g/dL (6.4-8.2)
--- NOTE | 2020-12-28 13:42 | NUR ---
CODE BLUE: SEE CODE SHEET Pt intubated per Dr Aparicio in room 263. Breath sounds equal, equal chest rise. Easy to bag. RT continues to bag per ACLS protocol. Dr Perera attempted to place femoral CL without success. Pt taken to ICU room 107 with RT bagging and pt attached to the life pack. Refugio SNELL received report. Pt admitted to 107. OG, manrique and new IV's all placed once in room. Pt remains to have heart rate in the 80's. Pt remians on Dopamine at 10 mcg/kg/min Levophed was started due to low pressure and currently is running at 0.1mcg/kg/min. Pt sedated as per protocol. Attempted to nofity family several time without success. Messages left on voicemail
[2020-12-28 13:51] LABS: BASE EXCESS COOX -3 mmol/L (-3-3); HCO3 COOX 22 mmol/L (21-28); METHEMOGLOBIN 0.5 % (0.0-1.9); OXYHEMOGLOBIN 97.5 %; PCO2 COOX 35 mmHg (35-46); PO2 COOX 137 mmHg (65-108); SAT O2 COOX 99 % (92-99)
--- NOTE | 2020-12-28 14:11 | RAD ---
Procedure: Ultrasound-guided placement of right internal jugular central venous catheter12/28/2020 12:08 PM Clinical Indication: need access on pressors Discussion: The risks and benefits of the procedure were discussed the patient and/or their freight representative. Informed consent was obtained. A timeout procedure was performed. All elements of maximal sterile barrier technique including the use of a cap, mask, sterile gown, sterile gloves, large sterile sheet, appropriate hand hygiene, and 2% chlorhexidine for cutaneous antisepsis (or acceptable alternative antiseptic per current guidelines) were followed for this procedure. The patient was prepped and draped in the usual sterile fashion. Ultrasound interrogation of the right neck revealed patency and compressibility of the right internal jugular vein. A 21-gauge micropuncture was then used to gain access to this vein under ultrasound guidance. A hard copy ultrasound image was recorded. A guidewire was advanced centrally. 5 Nepali sheath was placed. Over a wire following dilatation, a triple-lumen central venous catheter was advanced centrally. Catheter was found to flush and aspirate normally. Follow-up chest radiograph demonstrates tip at the cavoatrial junction. Catheter secured in place and a sterile dressing was applied. No immediate complications were identified. Impression: Successful ultrasound-guided placement of right internal jugular triple-lumen central venous catheter
--- NOTE | 2020-12-28 14:56 | PDOC5 ---
CODE REPORT CODE REPORT Responded to code blue on the floor. Per nursing report, patient got up with PT today and afterwards became bradycardiac before going into asystole. CPR was started prior to my arrival and patient was given epinephrine. Shortly after arrival, ROSC was obtain as a bradycardic sinus rhythm. Atropine was given. Patient was awake, following commands, and fighting the mask. Decision was made to hold off on intubation. Further care to be dictated by primary team. VLADIMIR ESTRADA MD Dec 28, 2020 14:56
--- NOTE | 2020-12-28 15:12 | EKG ---
[facility] [address] [place] [address] Test Date: 2020-12-28 Test Time: 15:09:13 Pat Name: NUVIA BOONE Department: Room: [facility] Gender: F Clinical Physician Assistant: KIANNA : [id number] Requested By: JACOB STALLWORTH Order Number: [id number] Reading MD: Adolfo Pinon Measurements Intervals [place] Rate: 83 P: 63 AL: 148 QRS: 94 QRSD: 146 T: 9 QT: 414 QTc: 487 Interpretive Statements SINUS RHYTHM RIGHTWARD AXIS RIGHT BUNDLE BRANCH BLOCK Electronically Signed On 01-03-2021 10:06:29 NOZZLE OPERATOR by Adolfo Pinon
[2020-12-28] MEDS ORDERED: IV NORMAL SALINE 1000ML BAG 1,000 ML IV SCH (15:30)
--- NOTE | 2020-12-28 15:30 | PDOC ---
Provider Note Date of Service: DATE: 12/28/20 TIME: 1430 Pt seen this AM and was doing OK. She was then getting rehab got up with PT and then became bradycardia then had asystolic episode. Further rhythm strip was then noted with 4 sec pause then followed by coretta type 2 second degree. She is not on any BB at home. she did receive one dose of BB and has been diurese with significant CHF. She is covid-19 negative. CPR was then started and received it for 2 min to ROSC received 1 epi and atropine then back to SR and then she went to junctional rhythm and bradycardiac again received atropine then became pulseless to PEA requiring 4 min of CPR with 2 epinephrine then briefly got pulse when she went to ventricular escape rhythm slow rate in the 20-30s to which she became pulseless again. She then received additional 2 epinephrines, dopamine, IVF were all infusing and NaHCO3 and calcium gluconate were given. She is 9 min to ROSC with good HR in the 90s and good pulse appreciated with SR with RBBB at ROSC. Dopamine at 10 mcg is infusing. She was then intubated and central line was attempted and placed. She was then transferred to ICU. TTE then revealed severe and MR with preliminary EF at approximately 50%. K and Mg are normal. She remains hyponatremic due to hypervolemia. She will need L/RHC and further evaluate her valvular disease and intracardiac gradients. Will monitor rhythm further recommendation in regards to any potential pacemaker, valvular procedure after BB washout period and cath findings. Pt is currently stable with small dose of levophed. Will continue to diurese as tolerated. Discussed with son in regards to R/LHC, risks and benefits explained and agreeable to proceed. Justifications for Admission Other Justification JACOB STALLWORTH DISTRIBUTION FIELD TECHNICIAN Dec 28, 2020 15:30
--- NOTE | 2020-12-28 16:43 | RAD ---
XR CHEST 1V Clinical Indication: Reason: 263 - post intubation, central line, CHF Comparison: AP chest, prior day. Findings: There is endotracheal tube, tip is 2.7 cm superior to the brenna. Stable cardiac enlargement. Bilateral diffuse interstitial and alveolar opacities are worse. Some of the opacity on the right could be due to layering pleural effusion. There are small bilateral pleural effusions. No obvious pneumothorax, limited sensitivity with supine position. IMPRESSION: 1. Endotracheal tube in appropriate position. 2. Bilateral pulmonary opacities have increased. Electronically signed by: Sushant Conway MD (12/28/2020 4:41 PM) [id number]
--- NOTE | 2020-12-28 16:45 | RAD ---
Single view of the chest. 12/28/2020 1:55 PM Indication: Reason: central line placement / Spl. Instructions: / History: Comparison: Chest radiograph earlier today Findings: There is a new right internal jugular central line with tip. Enteric tube extends below the diaphragm. Endotracheal tube is unchanged. There is no pneumothorax. Probable layering pleural effus ion noted on the right. Central vascular congestion and interstitial edema is noted throughout the ana ngs. No pneumothorax. No acute osseous changes are identified. IMPRESSION: New right internal jugular central line and enteric tube, in expected positions. Otherwis e similar appearance of the chest Electronically signed by: Michael Chand MD (12/28/2020 4:43 PM) [id number]
--- NOTE | 2020-12-28 16:51 | CARD ---
MR#: [id number] Date of Study: 12/28/2020 Ordering Physician: JACOB STALLWORTH, Referring Physician: JACOB STALLWORTH Tech: Kylee Willett [facility] APPROVED REPORT EXAM: Two-dimensional and M-mode echocardiogram with Doppler and color Doppler. Other Information Quality : Good INDICATION Congestive Heart Failure 2D DIMENSIONS RVDd4.7 (2.9-3.5cm)Left Atrium(2D)4.6 (1.6-4.0cm) IVSd1.1 (0.7-1.1cm)Aortic Root(2D)2.8 (2.0-3.7cm) LVDd4.6 (3.9-5.9cm)LVOT Diameter1.8 (1.8-2.4cm) PWd0.8 (0.7-1.1cm)LVDs3.0 (2.5-4.0cm) FS (%) 34.6 %SV60.7 ml LVEF(%)63.8 (>50%) M-Mode DIMENSIONS Aortic Cusp Exc0.38 (1.5-2.0cm) Aortic Valve AoV Peak Best.525.6cm/sAoV TQC414.3cm AO Peak GR.110.5mmHgLVOT VTI 13.16cm AO Mean GR.68mmHgAVA (VTI)0.27cm2 Mitral Valve MV E Zcdbzogx617.3cm/sMV DECEL GGSV118ed MV A Joxknhwu71.4cm/sE/A Ratio2.5 Tricuspid Valve TR P. Wwtfrdsi526xq/sRAP TLQYYGUP43lsOz TR Peak Gr.83lyPkALPV62jpFq Pulmonary Vein S1 Knesnjea404.4cm/sS2 Hnsxqjyf76.28cm/s D2 Qxcgudai10.3cm/s LEFT VENTRICLE The left ventricle is normal size. There is normal left ventricular wall thickness. The left ventricu lar systolic function is low normal. EF 50% There is normal LV segmental wall motion. Tissue Doppler imaging reveals severe left ventricular diastolic dysfunction. No left ventricle thrombus noted on is study. There is no left ventricular aneurysm. RIGHT VENTRICLE The right ventricle is mildly dilated. The right ventricular systolic function is normal. ATRIA The left atrium is mildly dilated. The right atrium is mildly dilated. The interatrial septum is inta ct with no evidence for an atrial septal defect or patent foramen ovale as noted on 2-D or Doppler im aging. AORTIC VALVE The aortic valve is severely calcified. Doppler and Color Flow revealed trace aortic regurgitation. C alculated aortic valve area is 0.27 cm2 with maximum pressure gradient of 111 mmHg and mean pressure gradient of 68 mmHg. Doppler and color-flow analysis revealed critical aortic stenosis. MITRAL VALVE The mitral valve is moderately thickened. Mitral annular calcification is mild to moderate. There is no evidence of mitral valve prolapse. There is no mitral valve stenosis. Doppler and Color-flow revea led severe mitral regurgitation. TRICUSPID VALVE The tricuspid valve is normal in structure and function. Doppler and Color Flow revealed mild tricusp id regurgitation. There is severe pulmonary hypertension. The PA pressure was estimated at 77 mmHg. T here is no tricuspid valve stenosis. PULMONIC VALVE Doppler and Color Flow revealed trace pulmonic valvular regurgitation. There is no pulmonic valvular stenosis. GREAT VESSELS The aortic root is normal in size. The ascending aorta is mildly dilated at 3.6 cm. The IVC is dilate d and collapses <50% with inspiration. PERICARDIAL EFFUSION There is moderate pleural effusion. There is a small circumferential pericardial effusion. Critical Notification Critical Value: No <Conclusion> The left ventricular systolic function is low normal. EF 50% There is normal LV segmental wall motion. The right ventricle is mildly dilated. Calculated aortic valve area is 0.27 cm2 with maximum pressure gradient of 111 mmHg and mean pressure gradient of 68 mmHg. Doppler and color-flow analysis revealed critical aortic stenosis. Doppler and Color-flow revealed severe mitral regurgitation. Doppler and Color Flow revealed mild tricuspid regurgitation. There is severe pulmonary hypertension. The PA pressure was estimated at 77 mmHg. There is a small circumferential pericardial effusion. There is moderate pleural effusion. Signed by : Beto Peters, Electronically Approved : 12/28/2020 16:50:26
[2020-12-28 17:14] LABS: UR POTASSIUM 27.3 mmol/L (Not Estab.)
[2020-12-28] MEDS: ENOXAPARIN 40 MG/0.4 ML SYRINGE. SQ SCH (18:31)
--- NOTE | 2020-12-28 18:35 | NUR ---
Patients granddaughter Jie, who is an ICU nurse, called to receive update on patient following code blue. Information given regarding code blue and results from echocardiogram. Jie asked to talk to Dr. Peters. Dr. Peters called her back later and discussed options and told family to think about it and let us know kristi what their decision was. Jie called unit back and stated that they would like to continue treatment but make her comfortable tomorrow. Family said they'd be here at 0900.
[2020-12-29] VITALS (24 sets, daily range): BP systolic 85–118; BP diastolic 45–71
[2020-12-29] MEDS: INSULIN LISPRO 300 UNITS/3 ML VIAL. SQ SCH ×4 (05:56→17:30)
[2020-12-29 08:34] LABS: CALCIUM 8.8 mg/dL (8.5-10.1); CREATININE 1.4 mg/dL (0.6-1.0); POTASSIUM 3.4 mmol/L (3.5-5.1)
--- NOTE | 2020-12-29 08:53 | PDOC ---
[facility] [facility] PROGRESS NOTE Date of Service DOS: DATE: 12/29/20 TIME: 08:49 Chief Complaint Chief Complaint Assessment/Plan Cardiac arrest - PEA arrest Acute exacerbation of congestive heart failure chronic in nature with preserved ejection fraction Severe hyponatremia Dietary transgressions Hyperglycemia Bilateral pleural effusions Plan Diurese patient with Lasix IV Daily weight Consult cardiology We will do urine electrolytes and urine osmolality as well as serum osmolality for hyponatremia work-up Check thyroid function test and B12 levels as well Resume home medications once available for review DVT prophylaxis with Lovenox Further recommendations based on the clinical course Plan of care explained detail to the patient and her son greater than 60 minutes were spent in the admitting process the patient in [id number] contact review of chart counseling coordination of care History of Present Illness History of Present Illness Ms Webber is an 80-year-old female with past medical history of congestive heart failure who has been in her usual state of health until approximately 3 to 4 days prior to her admission when she started complaining of worsening dyspnea and lower extremity edema. The patient also reports orthopnea no paroxysmal nocturnal dyspnea no chest pain no palpitations no shortness of breath was reported. The patient was seen in the outpatient setting by her family physician who put her on most likely diuretics she does not remember the name of the medicine she received. Despite intervention in the outpatient setting her symptoms got worse she denies any fever chills no upper respiratory tract infection symptoms no generalized malaise no cough or sputum production no pleurisy has been reported. She denies abdominal discomfort nausea vomiting or diarrhea, she has been adherent to her medications but most likely in her case dietary transgression is the culprit. She does not cook for herself anymore since she lives by herself and most likely eats frozen meals and prepackaged prepared food and sodium rich soups that probably has put her in failure. She has history of aortic stenosis as well her last echocardiogram was reported by the emergency department physician 5 years ago with a preserved ejection fraction of 55%. The patient will be admitted for further treatment of her acute exacerbation of chronic heart failure which seems to be preserved ejection fraction and also severe hyponatremia. The patient denies any focal neurological deficits no dizziness no seizure-like activity no syncopal episodes no other complaints voiced. Plan of care explained detail all of her concerns addressed to the best my abilities reassurance provided 2/3: Had a PEA arrest x2 s/p ROSC after 3x epinephrine and more than 10 minutes of CPR, Transferred to ICU on dopamine and levophed Seen in ICU on ventilator. No further arrest overnight. Labs with K 3.4 and Mg 1.7, Na improved. No clear etiology for arrest. cc time 37 min Vitals/I&O Vitals/I&O: Vital Signs Date Time Temp Pulse Resp B/P (MAP) Pulse Ox O2 Delivery O2 Flow Rate FiO2 12/29/20 07:42 100 Ventilator 12/29/20 07:00 76 16 87/50 (62) 12/29/20 04:00 98.5 98.5 I & O 12/28/20 12/28/20 12/29/20 15:00 23:00 07:00 Intake Total 477.6 ml 1215 ml Output Total 1055 ml 1150 ml Balance -577.4 ml 65 ml Physical Exam General: Other (Sedated on vent) Heart: Regular rate (SR) Lungs: Other (Faint crackles) Abdomen: Soft, Other (anasarca) Extremities: No cyanosis Skin: No breakdown, No significant lesion Labs Labs: Laboratory Tests Test 12/28/20 13:15 12/28/20 13:40 12/29/20 00:04 12/29/20 05:52 Sodium Level 121 mmol/L (136-145) Potassium Level 3.6 mmol/L (3.5-5.1) Chloride Level 89 mmol/L (98-107) Carbon Dioxide Level 21 mmol/L (21-32) Anion Gap 11 (6-14) Blood Urea Nitrogen 23 mg/dL (7-20) Creatinine 1.3 mg/dL (0.6-1.0) Estimated GFR (Cockcroft-Gault) 39.2 BUN/Creatinine Ratio 18 (6-20) Glucose Level 213 mg/dL (70-99) Calcium Level 9.2 mg/dL (8.5-10.1) Total Bilirubin 1.3 mg/dL (0.2-1.0) Aspartate Amino Transf (AST/SGOT) 45 U/L (15-37) Alanine Aminotransferase (ALT/SGPT) 30 U/L (14-59) Alkaline Phosphatase 81 U/L (46-116) Troponin I Quantitative 0.031 ng/mL (0.000-0.055) Total Protein 6.5 g/dL (6.4-8.2) Albumin 3.1 g/dL (3.4-5.0) Albumin/Globulin Ratio 0.9 (1.0-1.7) O2 Saturation 99 % (92-99) Arterial Blood pH 7.40 (7.35-7.45) Arterial Blood pCO2 at Patient Temp 35 mmHg (35-46) Arterial Blood pO2 at Patient Temp 137 mmHg (65-108) Arterial Blood HCO3 22 mmol/L (21-28) Arterial Blood Base Excess -3 mmol/L (-3-3) Oxyhemoglobin 97.5 % Methemoglobin 0.5 % (0.0-1.9) Carbon Monoxide, Quantitative 0.6 % (0.0-1.9) FiO2 100 Glucose (Fingerstick) 190 mg/dL (70-99) 183 mg/dL (70-99) Test 12/29/20 08:10 Sodium Level 123 mmol/L (136-145) Potassium Level 3.4 mmol/L (3.5-5.1) Chloride Level 90 mmol/L (98-107) Carbon Dioxide Level 26 mmol/L (21-32) Anion Gap 7 (6-14) Blood Urea Nitrogen 22 mg/dL (7-20) Creatinine 1.4 mg/dL (0.6-1.0) Estimated GFR (Cockcroft-Gault) 36.0 Glucose Level 176 mg/dL (70-99) Calcium Level 8.8 mg/dL (8.5-10.1) Magnesium Level 1.7 mg/dL (1.8-2.4) Assessment and Plan Assessmemt and Plan Problems Medical Problems: (1) Acute pulmonary edema Status: Acute (2) Anasarca Status: Acute (3) Hyponatremia Status: Acute Comment Review of Relevant I have reviewed the following items david (where applicable) has been applied. Medications: Current Medications Medications (Trade) Dose Ordered Sig/Maren Route PRN Reason Start Time Stop Time Status Last Admin Dose Admin Losartan Potassium (Cozaar) 50 mg DAILY PO 12/28/20 09:00 12/28/20 12:30 DC 12/28/20 09:32 Dopamine HCl/ Dextrose 250 ml @ 16.35 mls/ hr 1X ONCE IV 12/28/20 12:30 12/29/20 03:47 DC 12/28/20 13:38 Fentanyl Citrate 30 ml @ 0 mls/hr CONT PRN IV SEE PROTOCOL 12/28/20 12:45 12/28/20 20:38 Midazolam HCl 100 ml @ 0 mls/hr CONT PRN IV SEE PROTOCOL 12/28/20 12:45 12/28/20 20:37 Norepinephrine Bitartrate 8 mg/ Dextrose 258 ml @ 16.873 mls/ hr CONT PRN IV PER PROTOCOL 12/28/20 13:15 12/28/20 20:36 Dopamine HCl/ Dextrose 250 ml @ 16.35 mls/ hr CONT PRN IV SEE I/O RECORD 12/28/20 20:00 12/28/20 20:35 Justifications for Admission Other Justification YADIRA CARRILLO MD Dec 29, 2020 08:53
[2020-12-29] MEDS ORDERED: POTASSIUM CHLORIDE 20MEQ 100 ML IV ONE (09:00)
[2020-12-29] MEDS ORDERED: MAGNESIUM SULFATE 2GM 50 ML IV ONE (09:00)
[2020-12-29] MEDS: SENNOSIDES/DOCUSATE 8.6/50MG TABLET. PO SCH ×2 (09:00→21:00)
[2020-12-29] MEDS: FUROSEMIDE 40 MG/4 ML VIAL. IVP SCH ×2 (09:14→14:46)
--- NOTE | 2020-12-29 09:58 | PDOC ---
PULMONARY PROGRESS NOTES DATE: 12/29/20 TIME: 09:58 Vitals Vital Signs Date Time Temp Pulse Resp B/P (MAP) Pulse Ox O2 Delivery O2 Flow Rate FiO2 12/29/20 09:26 Ventilator 12/29/20 09:00 81 16 99/57 (71) 100 12/29/20 08:00 97.9 97.9 Lungs: Other (Faint crackles) Labs Laboratory Tests Test 12/27/20 12:42 12/27/20 13:56 12/27/20 14:32 12/27/20 16:48 White Blood Count 8.6 x10^3/uL (4.0-11.0) Red Blood Count 4.44 x10^6/uL (3.50-5.40) Hemoglobin 13.6 g/dL (12.0-15.5) Hematocrit 39.8 % (36.0-47.0) Mean Corpuscular Volume 90 fL (79-100) Mean Corpuscular Hemoglobin 31 pg (25-35) Mean Corpuscular Hemoglobin Concent 34 g/dL (31-37) Red Cell Distribution Width 15.0 % (11.5-14.5) Platelet Count 163 x10^3/uL (140-400) Neutrophils (%) (Auto) 77 % (31-73) Lymphocytes (%) (Auto) 15 % (24-48) Monocytes (%) (Auto) 7 % (0-9) Eosinophils (%) (Auto) 0 % (0-3) Basophils (%) (Auto) 0 % (0-3) Neutrophils # (Auto) 6.6 x10^3/uL (1.8-7.7) Lymphocytes # (Auto) 1.3 x10^3/uL (1.0-4.8) Monocytes # (Auto) 0.6 x10^3/uL (0.0-1.1) Eosinophils # (Auto) 0.0 x10^3/uL (0.0-0.7) Basophils # (Auto) 0.0 x10^3/uL (0.0-0.2) Sodium Level 121 mmol/L (136-145) Potassium Level 3.8 mmol/L (3.5-5.1) Chloride Level 88 mmol/L (98-107) Carbon Dioxide Level 21 mmol/L (21-32) Anion Gap 12 (6-14) Blood Urea Nitrogen 19 mg/dL (7-20) Creatinine 1.0 mg/dL (0.6-1.0) Estimated GFR (Cockcroft-Gault) 53.1 BUN/Creatinine Ratio 19 (6-20) Glucose Level 179 mg/dL (70-99) Hemoglobin A1c 6.4 % (4.8-5.6) Calcium Level 9.1 mg/dL (8.5-10.1) Magnesium Level 1.8 mg/dL (1.8-2.4) Total Bilirubin 1.6 mg/dL (0.2-1.0) Aspartate Amino Transf (AST/SGOT) 43 U/L (15-37) Alanine Aminotransferase (ALT/SGPT) 33 U/L (14-59) Alkaline Phosphatase 89 U/L (46-116) Troponin I Quantitative < 0.017 ng/mL (0.000-0.055) EF-Ewh-W-Type Natriuretic Peptide 2856 pg/mL (0-449) Total Protein 7.0 g/dL (6.4-8.2) Albumin 3.8 g/dL (3.4-5.0) Albumin/Globulin Ratio 1.2 (1.0-1.7) Vitamin B12 Level 1310 pg/mL (247-911) Thyroid Stimulating Hormone (TSH) 3.423 uIU/mL (0.358-3.74) Free Thyroxine 1.54 ng/dL (0.76-1.46) Coronavirus (PCR) Not detected (Not Detected) Urine Collection Type Unknown Urine Color Yellow Urine Clarity Cloudy Urine pH 6.0 (<5.0-8.0) Urine Specific [place] 1.015 (1.000-1.030) Urine Protein Negative mg/dL (NEG-TRACE) Urine Glucose (UA) Negative mg/dL (NEG) Urine Ketones (Stick) Negative mg/dL (NEG) Urine Blood Negative (NEG) Urine Nitrite Positive (NEG) Urine Bilirubin Negative (NEG) Urine Urobilinogen Dipstick 1.0 mg/dL (0.2 mg/dL) Urine Leukocyte Esterase Moderate (NEG) Urine RBC 0 /HPF (0-2) Urine WBC 11-20 /HPF (0-4) Urine Squamous Epithelial Cells Few /LPF Urine Bacteria Few /HPF (0-FEW) Glucose (Fingerstick) 150 mg/dL (70-99) Test 12/27/20 17:45 12/27/20 21:22 12/28/20 05:50 12/28/20 08:07 Urine Sodium 72 mmol/L (Not Estab.) Urine Potassium 27.3 mmol/L (Not Estab.) Urine Chloride 97 mmol/L (Not Estab.) Glucose (Fingerstick) 231 mg/dL (70-99) Sodium Level 122 mmol/L (136-145) Potassium Level 4.4 mmol/L (3.5-5.1) Chloride Level 88 mmol/L (98-107) Carbon Dioxide Level 25 mmol/L (21-32) Anion Gap 9 (6-14) Blood Urea Nitrogen 19 mg/dL (7-20) Creatinine 1.2 mg/dL (0.6-1.0) Estimated GFR (Cockcroft-Gault) 43.0 Glucose Level 153 mg/dL (70-99) Calcium Level 9.0 mg/dL (8.5-10.1) Magnesium Level 1.8 mg/dL (1.8-2.4) Triglycerides Level 67 mg/dL (0-150) Cholesterol Level 231 mg/dL (0-200) LDL Cholesterol, Calculated 158 mg/dL (0-100) VLDL Cholesterol, Calculated 13 mg/dL (0-40) Non-HDL Cholesterol Calculated 171 mg/dL (0-129) HDL Cholesterol 60 mg/dL (40-60) Cholesterol/HDL Ratio 3.9 White Blood Count 5.2 x10^3/uL (4.0-11.0) Red Blood Count 4.17 x10^6/uL (3.50-5.40) Hemoglobin 12.5 g/dL (12.0-15.5) Hematocrit 37.0 % (36.0-47.0) Mean Corpuscular Volume 89 fL (79-100) Mean Corpuscular Hemoglobin 30 pg (25-35) Mean Corpuscular Hemoglobin Concent 34 g/dL (31-37) Red Cell Distribution Width 15.0 % (11.5-14.5) Platelet Count 134 x10^3/uL (140-400) Neutrophils (%) (Auto) 74 % (31-73) Lymphocytes (%) (Auto) 19 % (24-48) Monocytes (%) (Auto) 7 % (0-9) Eosinophils (%) (Auto) 0 % (0-3) Basophils (%) (Auto) 0 % (0-3) Neutrophils # (Auto) 3.8 x10^3/uL (1.8-7.7) Lymphocytes # (Auto) 1.0 x10^3/uL (1.0-4.8) Monocytes # (Auto) 0.4 x10^3/uL (0.0-1.1) Eosinophils # (Auto) 0.0 x10^3/uL (0.0-0.7) Basophils # (Auto) 0.0 x10^3/uL (0.0-0.2) Test 12/28/20 08:43 12/28/20 13:15 12/28/20 13:40 12/29/20 00:04 Glucose (Fingerstick) 148 mg/dL (70-99) 190 mg/dL (70-99) Sodium Level 121 mmol/L (136-145) Potassium Level 3.6 mmol/L (3.5-5.1) Chloride Level 89 mmol/L (98-107) Carbon Dioxide Level 21 mmol/L (21-32) Anion Gap 11 (6-14) Blood Urea Nitrogen 23 mg/dL (7-20) Creatinine 1.3 mg/dL (0.6-1.0) Estimated GFR (Cockcroft-Gault) 39.2 BUN/Creatinine Ratio 18 (6-20) Glucose Level 213 mg/dL (70-99) Calcium Level 9.2 mg/dL (8.5-10.1) Total Bilirubin 1.3 mg/dL (0.2-1.0) Aspartate Amino Transf (AST/SGOT) 45 U/L (15-37) Alanine Aminotransferase (ALT/SGPT) 30 U/L (14-59) Alkaline Phosphatase 81 U/L (46-116) Troponin I Quantitative 0.031 ng/mL (0.000-0.055) Total Protein 6.5 g/dL (6.4-8.2) Albumin 3.1 g/dL (3.4-5.0) Albumin/Globulin Ratio 0.9 (1.0-1.7) O2 Saturation 99 % (92-99) Arterial Blood pH 7.40 (7.35-7.45) Arterial Blood pCO2 at Patient Temp 35 mmHg (35-46) Arterial Blood pO2 at Patient Temp 137 mmHg (65-108) Arterial Blood HCO3 22 mmol/L (21-28) Arterial Blood Base Excess -3 mmol/L (-3-3) Oxyhemoglobin 97.5 % Methemoglobin 0.5 % (0.0-1.9) Carbon Monoxide, Quantitative 0.6 % (0.0-1.9) FiO2 100 Test 12/29/20 05:52 12/29/20 08:10 Glucose (Fingerstick) 183 mg/dL (70-99) Sodium Level 123 mmol/L (136-145) Potassium Level 3.4 mmol/L (3.5-5.1) Chloride Level 90 mmol/L (98-107) Carbon Dioxide Level 26 mmol/L (21-32) Anion Gap 7 (6-14) Blood Urea Nitrogen 22 mg/dL (7-20) Creatinine 1.4 mg/dL (0.6-1.0) Estimated GFR (Cockcroft-Gault) 36.0 Glucose Level 176 mg/dL (70-99) Calcium Level 8.8 mg/dL (8.5-10.1) Magnesium Level 1.7 mg/dL (1.8-2.4) Laboratory Tests Test 12/28/20 13:15 12/28/20 13:40 12/29/20 00:04 12/29/20 05:52 Sodium Level 121 mmol/L (136-145) Potassium Level 3.6 mmol/L (3.5-5.1) Chloride Level 89 mmol/L (98-107) Carbon Dioxide Level 21 mmol/L (21-32) Anion Gap 11 (6-14) Blood Urea Nitrogen 23 mg/dL (7-20) Creatinine 1.3 mg/dL (0.6-1.0) Estimated GFR (Cockcroft-Gault) 39.2 BUN/Creatinine Ratio 18 (6-20) Glucose Level 213 mg/dL (70-99) Calcium Level 9.2 mg/dL (8.5-10.1) Total Bilirubin 1.3 mg/dL (0.2-1.0) Aspartate Amino Transf (AST/SGOT) 45 U/L (15-37) Alanine Aminotransferase (ALT/SGPT) 30 U/L (14-59) Alkaline Phosphatase 81 U/L (46-116) Troponin I Quantitative 0.031 ng/mL (0.000-0.055) Total Protein 6.5 g/dL (6.4-8.2) Albumin 3.1 g/dL (3.4-5.0) Albumin/Globulin Ratio 0.9 (1.0-1.7) O2 Saturation 99 % (92-99) Arterial Blood pH 7.40 (7.35-7.45) Arterial Blood pCO2 at Patient Temp 35 mmHg (35-46) Arterial Blood pO2 at Patient Temp 137 mmHg (65-108) Arterial Blood HCO3 22 mmol/L (21-28) Arterial Blood Base Excess -3 mmol/L (-3-3) Oxyhemoglobin 97.5 % Methemoglobin 0.5 % (0.0-1.9) Carbon Monoxide, Quantitative 0.6 % (0.0-1.9) FiO2 100 Glucose (Fingerstick) 190 mg/dL (70-99) 183 mg/dL (70-99) Test 12/29/20 08:10 Sodium Level 123 mmol/L (136-145) Potassium Level 3.4 mmol/L (3.5-5.1) Chloride Level 90 mmol/L (98-107) Carbon Dioxide Level 26 mmol/L (21-32) Anion Gap 7 (6-14) Blood Urea Nitrogen 22 mg/dL (7-20) Creatinine 1.4 mg/dL (0.6-1.0) Estimated GFR (Cockcroft-Gault) 36.0 Glucose Level 176 mg/dL (70-99) Calcium Level 8.8 mg/dL (8.5-10.1) Magnesium Level 1.7 mg/dL (1.8-2.4) Medications Active Scripts Medications Dose Route/Sig Max Daily Dose Days Date Category Klor-Con 10 (Potassium Chloride) 10 Meq Tablet.er 1 Tab PO DAILY 12/27/20 Reported Lasix (Furosemide) 40 Mg Tablet 1 Tab PO DAILY 12/27/20 Reported Metformin Hcl Er (Metformin Hcl) 500 Mg Tab.er.24h 500 Mg PO [id number] 12/27/20 Reported Losartan Potassium 100 Mg Tablet 100 Mg PO DAILY 12/27/20 Reported Impression . Respiratory failure secondary to cardiac arrest Severe valvular heart disease Acute heart failure Continue current support, discussed case with Dr. Perera, patient family contemplating possible palliative care CAITLYN TURNER MD Dec 29, 2020 09:58
--- NOTE | 2020-12-29 09:59 | NUR ---
SS following up with discharge planning. SS reviewed pt chart and discussed with pt RN. Pt is currently on the vent at 70%. COVID19 negative. Pt on dopamine and Levophed. Not stable. General Helper to have family meeting today. Possible withdraw of care. SS will continue to follow as needed.
--- NOTE | 2020-12-29 10:06 | PDOC2 ---
CONSULT Date of Consult Date of Consult DATE: 12/29/20 TIME: 09:45 Reason for Consult Reason for Consult: NICK, Hyponatremia , plan for Cardiac cath Referring Physician Referring Physician: Cardiology Identification/Chief Complaint Chief Complaint Unable to Obtain History of Present Illness Reason for Visit: 80 yoCF admitted for complains of SOA on 12/27 She Reported that she has been having SOA and leg swelling in the last month but increased symptoms in the last week SOA particularly with activity No report of chest pain, nausea or vomiting . She did report decreased appetite . No diarrhea. No fever or chills. No symptoms of passing out or frequent dizziness. Denies any CAD or past arrhythmias. No report of Urinary complaints per chart review She has been Hyponatremic since presentation, Cr was normal range She was doing OK on 11/27 morning , was getting rehab PT , coded 3 times - Asystole, Bradycardiac, PEA - intubated and transferred to ICU. TTE revealed severe and MR Past Medical History Cardiovascular: HTN, Hyperlipidemia (statin intolerant), Aortic stenosis, Valve insufficiency Pulmonary: No pertinent hx CENTRAL NERVOUS SYSTEM: Other (No pertinent history) GI: No pertinent hx Heme/Onc: No pertinent hx Hepatobiliary: No pertinent hx Psych: No pertinent hx Musculoskeletal: low back pain (lumbar radiculopathy), Osteoarthritis Rheumatologic: No pertinent hx Infectious disease: No pertinent hx ENT: Other (cataract) Renal/: Chronic renal insuff (CKD3) Endocrine: Diabetes (2) Past Surgical History Past Surgical History: Cataract Removal Family History Family History: Heart Disease (mother) Social History Quit ALCOHOL: none Drugs: None Lives: with Family Current Problem List Problem List Problems Medical Problems: (1) Acute pulmonary edema Status: Acute (2) Anasarca Status: Acute (3) Hyponatremia Status: Acute Current Medications Current Medications Current Medications Furosemide (Lasix) 40 mg 1X ONCE IVP Last administered on 12/27/20at 14:39; Start 12/27/20 at 14:15; Stop 12/27/20 at 14:16; Status DC Losartan Potassium (Cozaar) 50 mg DAILY PO Last administered on 12/28/20at 09:32; Start 12/28/20 at 09:00; Stop 12/28/20 at 12:30; Status DC Furosemide (Lasix) 40 mg BID92 IVP Last administered on 12/29/20at 09:14; Start 12/27/20 at 16:00 Carvedilol (Coreg) 12.5 mg BIDWMEALS PO Last administered on 12/28/20at 09:32; Start 12/27/20 at 17:00; Stop 12/28/20 at 12:30; Status DC Enoxaparin Sodium (Lovenox 40mg Syringe) 40 mg Q24H SQ Last administered on 12/28/20at 18:31; Start 12/27/20 at 16:00 Sodium Chloride (Normal Saline Flush) 3 ml QSHIFT PRN IV AFTER MEDS AND BLOOD DRAWS; Start 12/27/20 at 15:00 Ondansetron HCl (Zofran) 4 mg PRN Q6HRS PRN IVP NAUSEA/VOMITING; Start 12/27/20 at 15:00 Prochlorperazine (Compazine) 25 mg PRN Q12HR PRN AR NAUSEA/VOMITING; Start 12/27/20 at 15:00 Zolpidem Tartrate (Ambien) 5 mg PRN QHS PRN PO INSOMNIA, MAY REPEAT IN 1HR; Start 12/27/20 at 15:00 Info (Non-Icu Electrolyte Protocol) 1 ea PRN DAILY PRN MC SEE COMMENTS; Start 12/27/20 at 15:00; Status Cancel Morphine Sulfate (Morphine Sulfate) 1 mg PRN Q1HR PRN IV PAIN; Start 12/27/20 at 15:00 Acetaminophen/ Hydrocodone Bitart (Lortab 5/325) 1 tab PRN Q4HRS PRN PO MOD ERATE-SEVERE PAIN; Start 12/27/20 at 15:00 Acetaminophen (Tylenol) 650 mg PRN Q6HRS PRN PO Headaches, Temp > 101.5F; Start 12/27/20 at 15:00 Senna/Docusate Sodium (Senna Plus) 1 tab BID PO Last administered on 12/28/20at 21:29; Start 12/27/20 at 21:00 Magnesium Hydroxide (Milk Of Magnesia) 2,400 mg PRN Q12HR PRN PO CONSTIPATION; Start 12/27/20 at 15:00 Lactulose (Lactulose) 20 gm PRN Q12HR PRN PO CONSTIPATION; Start 12/27/20 at 15:00 Bisacodyl (Dulcolax Supp) 10 mg PRN DAILY PRN AR CONSTIPATION; Start 12/27/20 at 15:00 Insulin Human Lispro (HumaLOG) 0-5 UNITS TIDWMEALS SQ ; Start 12/28/20 at 08:00; Stop 12/28/20 at 18:19; Status DC Dextrose (Dextrose 50%-Water Syringe) 12.5 gm PRN Q15MIN PRN IV SEE COMMENTS; Start 12/27/20 at 17:30 Dopamine HCl/ Dextrose 250 ml @ 16.35 mls/ hr 1X ONCE IV Last administered on 12/28/20at 13:38; Start 12/28/20 at 12:30; Stop 12/29/20 at 03:47; Status DC Midazolam HCl (Versed) 4 mg 1X ONCE IV ; Start 12/28/20 at 12:45; Stop 12/28/20 at 12:46; Status DC Fentanyl Citrate 30 ml @ 0 mls/hr CONT PRN IV SEE PROTOCOL Last administered on 12/29/20at 09:26; Start 12/28/20 at 12:45 Midazolam HCl 100 ml @ 0 mls/hr CONT PRN IV SEE PROTOCOL Last administered on 12/28/20at 20:37; Start 12/28/20 at 12:45 Fentanyl Citrate 30 ml @ 0 mls/hr CONT PRN IV SEE PROTOCOL; Start 12/28/20 at 12:45; Status UNV Midazolam HCl 100 ml @ 0 mls/hr CONT PRN IV SEE PROTOCOL; Start 12/28/20 at 12:4 5; Status UNV Norepinephrine Bitartrate 8 mg/ Dextrose 258 ml @ 16.873 mls/ hr CONT PRN IV PER PROTOCOL Last administered on 12/28/20at 20:36; Start 12/28/20 at 13:15 Info (Icu Electrolyte Protocol) 1 ea CONT PRN PRN MC PER PROTOCOL; Start 12/28/20 at 13:15 Sodium Chloride 1,000 ml @ 0 mls/hr Q0M IV ; Start 12/28/20 at 15:30 Insulin Human Lispro (HumaLOG) 0-5 UNITS Q6HRS SQ ; Start 12/29/20 at 00:00 Dopamine HCl/ Dextrose 250 ml @ 16.35 mls/ hr CONT PRN IV SEE I/O RECORD Last administered on 12/28/20at 20:35; Start 12/28/20 at 20:00 Potassium Chloride/Water 100 ml @ 100 mls/hr 1X ONCE IV Last administered on 12/29/20at 09:02; Start 12/29/20 at 09:00; Stop 12/29/20 at 09:59 Magnesium Sulfate 50 ml @ 25 mls/hr 1X ONCE IV ; Start 12/29/20 at 09:00; Stop 12/29/20 at 10:59 Active Scripts Active Reported Klor-Con 10 (Potassium Chloride) 10 Meq Tablet.er 1 Tab PO DAILY 30 Days Lasix (Furosemide) 40 Mg Tablet 1 Tab PO DAILY 30 Days Metformin Hcl Er (Metformin Hcl) 500 Mg Tab.er.24h 500 Mg PO DAILYWBKFT Losartan Potassium 100 Mg Tablet 100 Mg PO DAILY Allergies Allergies: Coded Allergies: No Known Drug Allergies (Unverified , 12/27/20) ROS Review of System Unable to Obtain 12/27 Intubated/MV Physical Exam Physical Exam General: Intubated HEENT: Intubated, on MV Neck supple Heart: Regular rate (SR) Abdomen: Soft, BS + Extremities: No cyanosis Skin: No Rash Neuro: Intubated Psych/Mental Status: Unable to assess, intubated, MV Tatum + Vital Signs Vital Signs Date Time Temp Pulse Resp B/P (MAP) Pulse Ox O2 Delivery O2 Flow Rate FiO2 12/29/20 09:26 Ventilator 12/29/20 09:00 81 16 99/57 (71) 100 12/29/20 08:00 97.9 97.9 Assessment & Plan NICK - Post Code /cardiac/ on IV Diuretics/ , Non Oliguric Supportive care, Monitor Cardiac cath scheduled for this am per card consult , monitor for SARAHI Per Nursing family inclining towards Comfort care ? UTI at presentation- UA positive for Nitrites, wbc 's . Not on Abx. Defer to primary Hyponatremia POA- Pooe PO intake , cardiac,, .Furosemide at home (time line unknown to me) Hyponatremia fregoso pending Hypokalemia - replacing HypoMg Replacing S/P Cardiac arrest - PEA arrest on 12/28 Severe and MR on TTE with preserved EF Acute exacerbation of congestive heart failure chronic in nature with preserved ejection fraction Bilateral pleural effusions Labs Labs Laboratory Tests Test 12/27/20 12:42 12/27/20 13:56 12/27/20 14:32 2/2/21 16:48 White Blood Count 8.6 x10^3/uL (4.0-11.0) Red Blood Count 4.44 x10^6/uL (3.50-5.40) Hemoglobin 13.6 g/dL (12.0-15.5) Hematocrit 39.8 % (36.0-47.0) Mean Corpuscular Volume 90 fL (79-100) Mean Corpuscular Hemoglobin 31 pg (25-35) Mean Corpuscular Hemoglobin Concent 34 g/dL (31-37) Red Cell Distribution Width 15.0 % (11.5-14.5) Platelet Count 163 x10^3/uL (140-400) Neutrophils (%) (Auto) 77 % (31-73) Lymphocytes (%) (Auto) 15 % (24-48) Monocytes (%) (Auto) 7 % (0-9) Eosinophils (%) (Auto) 0 % (0-3) Basophils (%) (Auto) 0 % (0-3) Neutrophils # (Auto) 6.6 x10^3/uL (1.8-7.7) Lymphocytes # (Auto) 1.3 x10^3/uL (1.0-4.8) Monocytes # (Auto) 0.6 x10^3/uL (0.0-1.1) Eosinophils # (Auto) 0.0 x10^3/uL (0.0-0.7) Basophils # (Auto) 0.0 x10^3/uL (0.0-0.2) Sodium Level 121 mmol/L (136-145) Potassium Level 3.8 mmol/L (3.5-5.1) Chloride Level 88 mmol/L (98-107) Carbon Dioxide Level 21 mmol/L (21-32) Anion Gap 12 (6-14) Blood Urea Nitrogen 19 mg/dL (7-20) Creatinine 1.0 mg/dL (0.6-1.0) Estimated GFR (Cockcroft-Gault) 53.1 BUN/Creatinine Ratio 19 (6-20) Glucose Level 179 mg/dL (70-99) Hemoglobin A1c 6.4 % (4.8-5.6) Calcium Level 9.1 mg/dL (8.5-10.1) Magnesium Level 1.8 mg/dL (1.8-2.4) Total Bilirubin 1.6 mg/dL (0.2-1.0) Aspartate Amino Transf (AST/SGOT) 43 U/L (15-37) Alanine Aminotransferase (ALT/SGPT) 33 U/L (14-59) Alkaline Phosphatase 89 U/L (46-116) Troponin I Quantitative < 0.017 ng/mL (0.000-0.055) IX-Txr-F-Type Natriuretic Peptide 2856 pg/mL (0-449) Total Protein 7.0 g/dL (6.4-8.2) Albumin 3.8 g/dL (3.4-5.0) Albumin/Globulin Ratio 1.2 (1.0-1.7) Vitamin B12 Level 1310 pg/mL (247-911) Thyroid Stimulating Hormone (TSH) 3.423 uIU/mL (0.358-3.74) Free Thyroxine 1.54 ng/dL (0.76-1.46) Coronavirus (PCR) Not detected (Not Detected) Urine Collection Type Unknown Urine Color Yellow Urine Clarity Cloudy Urine pH 6.0 (<5.0-8.0) Urine Specific Pinch 1.015 (1.000-1.030) Urine Protein Negative mg/dL (NEG-TRACE) Urine Glucose (UA) Negative mg/dL (NEG) Urine Ketones (Stick) Negative mg/dL (NEG) Urine Blood Negative (NEG) Urine Nitrite Positive (NEG) Urine Bilirubin Negative (NEG) Urine Urobilinogen Dipstick 1.0 mg/dL (0.2 mg/dL) Urine Leukocyte Esterase Moderate (NEG) Urine RBC 0 /HPF (0-2) Urine WBC 11-20 /HPF (0-4) Urine Squamous Epithelial Cells Few /LPF Urine Bacteria Few /HPF (0-FEW) Glucose (Fingerstick) 150 mg/dL (70-99) Test 12/27/20 17:45 12/27/20 21:22 12/28/20 05:50 12/28/20 08:07 Urine Sodium 72 mmol/L (Not Estab.) Urine Potassium 27.3 mmol/L (Not Estab.) Urine Chloride 97 mmol/L (Not Estab.) Glucose (Fingerstick) 231 mg/dL (70-99) Sodium Level 122 mmol/L (136-145) Potassium Level 4.4 mmol/L (3.5-5.1) Chloride Level 88 mmol/L (98-107) Carbon Dioxide Level 25 mmol/L (21-32) Anion Gap 9 (6-14) Blood Urea Nitrogen 19 mg/dL (7-20) Creatinine 1.2 mg/dL (0.6-1.0) Estimated GFR (Cockcroft-Gault) 43.0 Glucose Level 153 mg/dL (70-99) Calcium Level 9.0 mg/dL (8.5-10.1) Magnesium Level 1.8 mg/dL (1.8-2.4) Triglycerides Level 67 mg/dL (0-150) Cholesterol Level 231 mg/dL (0-200) LDL Cholesterol, Calculated 158 mg/dL (0-100) VLDL Cholesterol, Calculated 13 mg/dL (0-40) Non-HDL Cholesterol Calculated 171 mg/dL (0-129) HDL Cholesterol 60 mg/dL (40-60) Cholesterol/HDL Ratio 3.9 White Blood Count 5.2 x10^3/uL (4.0-11.0) Red Blood Count 4.17 x10^6/uL (3.50-5.40) Hemoglobin 12.5 g/dL (12.0-15.5) Hematocrit 37.0 % (36.0-47.0) Mean Corpuscular Volume 89 fL (79-100) Mean Corpuscular Hemoglobin 30 pg (25-35) Mean Corpuscular Hemoglobin Concent 34 g/dL (31-37) Red Cell Distribution Width 15.0 % (11.5-14.5) Platelet Count 134 x10^3/uL (140-400) Neutrophils (%) (Auto) 74 % (31-73) Lymphocytes (%) (Auto) 19 % (24-48) Monocytes (%) (Auto) 7 % (0-9) Eosinophils (%) (Auto) 0 % (0-3) Basophils (%) (Auto) 0 % (0-3) Neutrophils # (Auto) 3.8 x10^3/uL (1.8-7.7) Lymphocytes # (Auto) 1.0 x10^3/uL (1.0-4.8) Monocytes # (Auto) 0.4 x10^3/uL (0.0-1.1) Eosinophils # (Auto) 0.0 x10^3/uL (0.0-0.7) Basophils # (Auto) 0.0 x10^3/uL (0.0-0.2) Test 12/28/20 08:43 12/28/20 13:15 12/28/20 13:40 12/29/20 00:04 Glucose (Fingerstick) 148 mg/dL (70-99) 190 mg/dL (70-99) Sodium Level 121 mmol/L (136-145) Potassium Level 3.6 mmol/L (3.5-5.1) Chloride Level 89 mmol/L (98-107) Carbon Dioxide Level 21 mmol/L (21-32) Anion Gap 11 (6-14) Blood Urea Nitrogen 23 mg/dL (7-20) Creatinine 1.3 mg/dL (0.6-1.0) Estimated GFR (Cockcroft-Gault) 39.2 BUN/Creatinine Ratio 18 (6-20) Glucose Level 213 mg/dL (70-99) Calcium Level 9.2 mg/dL (8.5-10.1) Total Bilirubin 1.3 mg/dL (0.2-1.0) Aspartate Amino Transf (AST/SGOT) 45 U/L (15-37) Alanine Aminotransferase (ALT/SGPT) 30 U/L (14-59) Alkaline Phosphatase 81 U/L (46-116) Troponin I Quantitative 0.031 ng/mL (0.000-0.055) Total Protein 6.5 g/dL (6.4-8.2) Albumin 3.1 g/dL (3.4-5.0) Albumin/Globulin Ratio 0.9 (1.0-1.7) O2 Saturation 99 % (92-99) Arterial Blood pH 7.40 (7.35-7.45) Arterial Blood pCO2 at Patient Temp 35 mmHg (35-46) Arterial Blood pO2 at Patient Temp 137 mmHg (65-108) Arterial Blood HCO3 22 mmol/L (21-28) Arterial Blood Base Excess -3 mmol/L (-3-3) Oxyhemoglobin 97.5 % Methemoglobin 0.5 % (0.0-1.9) Carbon Monoxide, Quantitative 0.6 % (0.0-1.9) FiO2 100 Test 12/29/20 05:52 12/29/20 08:10 Glucose (Fingerstick) 183 mg/dL (70-99) Sodium Level 123 mmol/L (136-145) Potassium Level 3.4 mmol/L (3.5-5.1) Chloride Level 90 mmol/L (98-107) Carbon Dioxide Level 26 mmol/L (21-32) Anion Gap 7 (6-14) Blood Urea Nitrogen 22 mg/dL (7-20) Creatinine 1.4 mg/dL (0.6-1.0) Estimated GFR (Cockcroft-Gault) 36.0 Glucose Level 176 mg/dL (70-99) Calcium Level 8.8 mg/dL (8.5-10.1) Magnesium Level 1.7 mg/dL (1.8-2.4) Laboratory Tests Test 12/28/20 13:15 12/28/20 13:40 12/29/20 00:04 12/29/20 05:52 Sodium Level 121 mmol/L (136-145) Potassium Level 3.6 mmol/L (3.5-5.1) Chloride Level 89 mmol/L (98-107) Carbon Dioxide Level 21 mmol/L (21-32) Anion Gap 11 (6-14) Blood Urea Nitrogen 23 mg/dL (7-20) Creatinine 1.3 mg/dL (0.6-1.0) Estimated GFR (Cockcroft-Gault) 39.2 BUN/Creatinine Ratio 18 (6-20) Glucose Level 213 mg/dL (70-99) Calcium Level 9.2 mg/dL (8.5-10.1) Total Bilirubin 1.3 mg/dL (0.2-1.0) Aspartate Amino Transf (AST/SGOT) 45 U/L (15-37) Alanine Aminotransferase (ALT/SGPT) 30 U/L (14-59) Alkaline Phosphatase 81 U/L (46-116) Troponin I Quantitative 0.031 ng/mL (0.000-0.055) Total Protein 6.5 g/dL (6.4-8.2) Albumin 3.1 g/dL (3.4-5.0) Albumin/Globulin Ratio 0.9 (1.0-1.7) O2 Saturation 99 % (92-99) Arterial Blood pH 7.40 (7.35-7.45) Arterial Blood pCO2 at Patient Temp 35 mmHg (35-46) Arterial Blood pO2 at Patient Temp 137 mmHg (65-108) Arterial Blood HCO3 22 mmol/L (21-28) Arterial Blood Base Excess -3 mmol/L (-3-3) Oxyhemoglobin 97.5 % Methemoglobin 0.5 % (0.0-1.9) Carbon Monoxide, Quantitative 0.6 % (0.0-1.9) FiO2 100 Glucose (Fingerstick) 190 mg/dL (70-99) 183 mg/dL (70-99) Test 12/29/20 08:10 Sodium Level 123 mmol/L (136-145) Potassium Level 3.4 mmol/L (3.5-5.1) Chloride Level 90 mmol/L (98-107) Carbon Dioxide Level 26 mmol/L (21-32) Anion Gap 7 (6-14) Blood Urea Nitrogen 22 mg/dL (7-20) Creatinine 1.4 mg/dL (0.6-1.0) Estimated GFR (Cockcroft-Gault) 36.0 Glucose Level 176 mg/dL (70-99) Calcium Level 8.8 mg/dL (8.5-10.1) Magnesium Level 1.7 mg/dL (1.8-2.4) Review All relevant outside records, renal labs, imaging studies, telemetry/EKG's were reviewed. Images Images CxR . Probable layering pleural effusion noted on the right. Central vascular congestion and interstitial edema is noted throughout the lungs. No pneumothorax. No acute osseous changes are identified. REYNALDO WALLER MD Dec 29, 2020 10:06
[2020-12-29 10:25] LABS: BASE EXCESS ABG -1 mmol/L (-3-3); FIO2 ABG 70/VENT; HCO3 ABG 22 mmol/L (21-28); PCO2 ABG 32 mmHg (35-46); PO2 ABG 158 mmHg (65-108); SAT O2 ABG 99 % (92-99)
--- NOTE | 2020-12-29 10:51 | NUR ---
Pt's son Adin (DPOA) took her purse home with him
[2020-12-29] MEDS: cefTRIAXone IV Push 1 GM VIAL. IVP SCH (12:09)
--- NOTE | 2020-12-29 12:14 | CONS ---
DATE OF CONSULTATION: 12/29/2020 ATTENDING PHYSICIAN: Dr. Schultz. REASON FOR CONSULTATION: The patient is seen in pulmonary consultation at the request of Dr. Schultz for acute respiratory failure, status post cardiopulmonary arrest. HISTORY OF PRESENT ILLNESS: The patient was being treated for acute systolic heart failure, severe aortic stenosis and accelerated hypertension. Yesterday, the patient coded. She had second-degree heart block. The patient underwent ACLS protocol. She received atropine, 2 epinephrine. She eventually had return of spontaneous circulation. The patient is currently on assist control ventilation, tidal volume 450, rate of 16, 70%, 5 of PEEP. She is on dopamine and Levophed. Her arterial blood gas revealed a pH of 7.46, PaCO2 of 36, pO2 157. Her labs and chest x-ray were reviewed. X-ray from yesterday revealed bilateral effusions. There was also vascular congestion. Her labs serology for coronavirus was negative. Electrolytes were noted. Sodium was low. BUN was elevated. Creatinine was elevated. White count was normal. Hemoglobin and hematocrit were noted. PAST MEDICAL HISTORY: Otherwise remarkable for hypertension, hyperlipidemia, aortic stenosis, valvular insufficiency, chronic back pain, lumbar radiculopathy, osteoarthritis, chronic renal insufficiency, diabetes. PAST SURGICAL HISTORY: Status post cataract removal. FAMILY HISTORY: Mother had heart disease. SOCIAL HISTORY: There is a history of tobacco use, but she quit. ALLERGIES: No known drug allergies. REVIEW OF SYSTEMS: Unobtainable secondary to the patient's condition. PHYSICAL EXAMINATION: VITAL SIGNS: Stable. O2 saturation was greater than 92%. NECK: Jugular venous distention was slightly elevated. LUNGS: Anteriorly were clear. CARDIOVASCULAR: Systolic murmur, 2/6. ABDOMEN: Soft. EXTREMITIES: No clubbing, cyanosis. Some edema. NEUROLOGICAL: The patient was sedated. LABORATORY DATA: Labs as indicated above. Chest x-ray as indicated above. IMPRESSION: 1. Acute hypoxemic respiratory failure secondary to acute cardiopulmonary arrest. 2. Acute on chronic diastolic heart failure. 3. Severe . 4. Accelerated hypertension. 5. Hyponatremia. 6. History of tobacco dependent, possible chronic obstructive pulmonary disease. 7. ALESIA revealing severe , MR and 50% ejection fraction. 8. Negative SARS-CoV-2. 9. Chronic renal insufficiency. 10. Protein malnutrition. PLAN: 1. We will continue support for now, case discussed with Dr. Repo. Family members are contemplating the possibility of providing palliative care. 2. We will follow up on ____ Cardiology input. 3. Maintain sedated. 4. Nutritional support. 5. No need for antibiotics. 6. We will await family decision regarding the possibility of palliative care for now. We will continue current support. I do appreciate the privilege in sharing in the patient's care. Total cumulative critical care time from 9:05 a.m. to 9:57 a.m. CAITLYN TURNER MD DR: TERRY/kevin JOB#: [id number] / [id number]
--- NOTE | 2020-12-29 12:30 | NUR ---
All sedation has been off since 1029. Family wants pt to wake up and be extubated so she can tell them what she wants concerning code status and possible TAVRS procedure.
[2020-12-29 16:08] LABS: BASE EXCESS ABG 1 mmol/L (-3-3); HCO3 ABG 24 mmol/L (21-28); PCO2 ABG 32 mmHg (35-46); PO2 ABG 92 mmHg (65-108); SAT O2 ABG 97 % (92-99)
--- NOTE | 2020-12-29 16:33 | NUR ---
Dr. Dumont notified of ABG results after CPAP trial, orders received to extubate at 1615, Pt extubated and placed on 2 liters NC at 1625. Son and daughter in law at the bedside.
--- NOTE | 2020-12-29 16:35 | NUR ---
Order to extubate received verbally from Dr. Dumont at 1617. Patient extubated at 1425 to 3L NC.
--- NOTE | 2020-12-29 16:45 | PDOC ---
GABO PADRON [employer] 12/29/20 1645: CARDIO Progress Notes Date and Time Date of Service 12/29/20 Time of Evaluation 1300 Subjective Subjective: Other (intubated ) Vitals Vitals Vital Signs Date Time Temp Pulse Resp B/P (MAP) Pulse Ox O2 Delivery O2 Flow Rate FiO2 12/29/20 15:19 100 Ventilator 12/29/20 15:00 86 20 104/52 (69) 12/29/20 12:00 98.6 98.6 Weight Weight [ ] Input and Output Intake and Output Intake and Output 12/29/20 07:00 Intake Total 1692.6 ml Output Total 2205 ml Balance -512.4 ml IV Total 1692.6 ml Output Urine Total 2205 ml # Bowel Movements 1 Laboratory Labs Laboratory Tests Test 12/29/20 00:04 12/29/20 05:52 12/29/20 08:00 12/29/20 08:10 Glucose (Fingerstick) 190 mg/dL (70-99) 183 mg/dL (70-99) O2 Saturation 99 % (92-99) Arterial Blood pH 7.46 (7.35-7.45) Arterial Blood pCO2 at Patient Temp 32 mmHg (35-46) Arterial Blood pO2 at Patient Temp 158 mmHg (65-108) Arterial Blood HCO3 22 mmol/L (21-28) Arterial Blood Base Excess -1 mmol/L (-3-3) FiO2 70/vent Sodium Level 123 mmol/L (136-145) Potassium Level 3.4 mmol/L (3.5-5.1) Chloride Level 90 mmol/L (98-107) Carbon Dioxide Level 26 mmol/L (21-32) Anion Gap 7 (6-14) Blood Urea Nitrogen 22 mg/dL (7-20) Creatinine 1.4 mg/dL (0.6-1.0) Estimated GFR (Cockcroft-Gault) 36.0 Glucose Level 176 mg/dL (70-99) Calcium Level 8.8 mg/dL (8.5-10.1) Magnesium Level 1.7 mg/dL (1.8-2.4) Test 12/29/20 12:13 Glucose (Fingerstick) 173 mg/dL (70-99) Microbiology Micro Microbiology 12/27/20 Urine Culture - Preliminary, Resulted Physical Exam HEENT: Neck Supple W Full Motion Chest: Symmetric LUNGS: Other (mechanical vent ) Heart: RRR Abdomen: Soft N/T Extremities: No Calf Tenderness Neurology: alert, follow commands Assessment Assessment 1. Acute on chronic diastolic CHF; Echo with preserved LV systolic function 2. Polyvalvular disease; critical aortic stenosis and severe mitral regurgitation. Family meeting in regards to conservative versus aggressive measures. Son would like patient to make decision. 3. Acute respiratory failure secondary to cardiac arrest; bradycardia, PEA. No VT/VF. approximately [place] mins [place] to ROSC. s/p intubation. No further bradyarrhythmias 4. Accelerated HTN: now hypotensive requiring pressor support. 5. Hyperlipidemia; intolerant to statins 6. Diabetes, II 7. Pulm HTN; PAP 77 mmHg 8. NICK 9. Hypokalemia, hypomagnesemia; replaced 10. PUI; COVID negative 11. UTI: per PCP Recommendations Off sedation. Await extubation and discuss conservative mgmt, medical therapy with Hospice services versus aggressive measures with referral to tertiary center for urgent TAVR. Ongoing support Justicifation of Admission Dx: Justifications for Admission: Justification of Admission Dx: Yes Comments: cardiac arrest acute on chronic systolic CHF critical MICAELA GARCIA MD 12/29/20 1739: CARDIO Progress Notes Plan Plan Patient seen and examined. Agree with above nurse practitioner note. Patient has been extubated and family is considering evaluation at [facility] for transcatheter aortic valve replacement versus medical management and hospice. We will await the family's decision in the patient's decision. Continue diuresis and blood pressure monitoring. GABO PADRON APRN Dec 29, 2020 16:45 MICAELA GARCIA MD Dec 29, 2020 17:39
[2020-12-29] MEDS: ENOXAPARIN 40 MG/0.4 ML SYRINGE. SQ SCH (17:29)
[2020-12-29] MEDS: fentaNYL PF VIAL 100 MCG/2 ML VIAL IVP PRN ×3 (19:57→23:03)
[2020-12-30] VITALS (18 sets, daily range): BP systolic 68–136; BP diastolic 36–73
[2020-12-30] MEDS: NOREPINEPHRINE VIAL 8 MG in IV DEXTROSE 5% 250 ML IV PRN (03:21)
[2020-12-30] MEDS: INSULIN LISPRO 300 UNITS/3 ML VIAL. SQ SCH ×3 (06:00→12:00)
[2020-12-30 07:04] LABS: CALCIUM 8.6 mg/dL (8.5-10.1); CREATININE 1.3 mg/dL (0.6-1.0); GFR 39.2; POTASSIUM 3.3 mmol/L (3.5-5.1)
[2020-12-30] MEDS: SENNOSIDES/DOCUSATE 8.6/50MG TABLET. PO SCH (07:56)
--- NOTE | 2020-12-30 08:20 | PDOC ---
[employer] PROGRESS NOTE Date of Service DOS: DATE: 12/30/20 TIME: 08:19 Chief Complaint Chief Complaint A/P: Cardiac arrest - PEA arrest Acute exacerbation of congestive heart failure chronic in nature with preserved ejection fraction Severe hyponatremia Hyperglycemia Bilateral pleural effusions Critical aortic stenosis - Calculated aortic valve area is 0.27 cm2 with maximum pressure gradient of 111 mmHg and mean pressure gradient of 68 mmHg. Doppler and color-flow analysis revealed critical aortic stenosis. Severe mitral regurgitation. Mild tricuspid regurgitation Severe pulmonary hypertension. The PA pressure was estimated at 77 mmHg. UTI - pansensitive E. coli on day 2 of rocephin. Plan: Wean levophed Cont dopamine, can wean as tolerated Family discussion for consideration for TAVR Diurese patient with Lasix IV Daily weight Further recommendations based on the clinical course Plan of care explained detail to the patient and her son greater than 60 minutes were spent in the admitting process the patient in [id number] contact review of chart counseling coordination of care FEN - NPO pending [employer] evaluation PPX - Lovenox FULL CODE Dispo - ICU on pressors, post extubation. Plan to coordinate transfer to tertiary care center with TAVR capabilities per d/w family and cardiology. With patient arrest would not be stable or suitable for discharge prior to CT surgery evaluation. History of Present Illness History of Present Illness Ms Webber is an 80-year-old female with past medical history of congestive heart failure who has been in her usual state of health until approximately 3 to 4 days prior to her admission when she started complaining of worsening dyspnea and lower extremity edema. The patient also reports orthopnea no paroxysmal nocturnal dyspnea no chest pain no palpitations no shortness of breath was reported. The patient was seen in the outpatient setting by her family physician who put her on most likely diuretics she does not remember the name of the medicine she received. Despite intervention in the outpatient setting her symptoms got worse she denies any fever chills no upper respiratory tract infection symptoms no generalized malaise no cough or sputum production no pleurisy has been reported. She denies abdominal discomfort nausea vomiting or diarrhea, she has been adherent to her medications but most likely in her case dietary transgression is the culprit. She does not cook for herself anymore since she lives by herself and most likely eats frozen meals and prepackaged prepared food and sodium rich soups that probably has put her in failure. She has history of aortic stenosis as well her last echocardiogram was reported by the emergency department physician 5 years ago with a preserved ejection fraction of 55%. The patient will be admitted for further treatment of her acute exacerbation of chronic heart failure which seems to be preserved ejection fraction and also severe hyponatremia. The patient denies any focal neurological deficits no dizziness no seizure-like activity no syncopal episodes no other complaints voiced. Plan of care explained detail all of her concerns addressed to the best my abilities reassurance provided 12/28: Had a PEA arrest x2 s/p ROSC after 3x epinephrine and more than 10 minutes of CPR, Transferred to ICU on dopamine and levophed 12/29: Seen in ICU on ventilator. No further arrest overnight. Labs with K 3.4 and Mg 1.7, Na improved. Critical found on echo, also severe MR. Weaned off sedation and extubated late in the day with family bedside. No events overnight. K3.3. NA 125. Patient recalls no events of the code. She is precontemplative about TAVR procedure. Still requiring pressor support. Vitals/I&O Vitals/I&O: Vital Signs Date Time Temp Pulse Resp B/P (MAP) Pulse Ox O2 Delivery O2 Flow Rate FiO2 12/30/20 06:00 93 22 136/70 (92) 100 Nasal Cannula 3.0 12/30/20 04:00 98.2 98.2 I & O 12/29/20 12/29/20 12/30/20 15:00 23:00 07:00 Intake Total 150 ml 680 ml 697 ml Output Total 1095 ml 1900 ml 625 ml Balance -945 ml -1220 ml 72 ml Physical Exam General: Alert, Cooperative Heart: Regular rate (SR), Other (4/6 LEVI) Lungs: Crackles Abdomen: Soft, Other (anasarca) Extremities: No cyanosis Skin: No breakdown, No significant lesion Labs Labs: Laboratory Tests Test 12/29/20 12:13 12/29/20 15:26 12/29/20 17:30 12/29/20 23:53 Glucose (Fingerstick) 173 mg/dL (70-99) 195 mg/dL (70-99) 162 mg/dL (70-99) O2 Saturation 97 % (92-99) Arterial Blood pH 7.49 (7.35-7.45) Arterial Blood pCO2 at Patient Temp 32 mmHg (35-46) Arterial Blood pO2 at Patient Temp 92 mmHg (65-108) Arterial Blood HCO3 24 mmol/L (21-28) Arterial Blood Base Excess 1 mmol/L (-3-3) FiO2 40/ps 8/5 Test 12/30/20 05:34 12/30/20 06:25 Glucose (Fingerstick) 160 mg/dL (70-99) Sodium Level 125 mmol/L (136-145) Potassium Level 3.3 mmol/L (3.5-5.1) Chloride Level 92 mmol/L (98-107) Carbon Dioxide Level 28 mmol/L (21-32) Anion Gap 5 (6-14) Blood Urea Nitrogen 23 mg/dL (7-20) Creatinine 1.3 mg/dL (0.6-1.0) Estimated GFR (Cockcroft-Gault) 39.2 Glucose Level 169 mg/dL (70-99) Calcium Level 8.6 mg/dL (8.5-10.1) Assessment and Plan Assessmemt and Plan Problems Medical Problems: (1) Acute pulmonary edema Status: Acute (2) Anasarca Status: Acute (3) Hyponatremia Status: Acute Comment Review of Relevant I have reviewed the following items david (where applicable) has been applied. Medications: Current Medications Medications (Trade) Dose Ordered Sig/Maren Route PRN Reason Start Time Stop Time Status Last Admin Dose Admin Potassium Chloride/Water 100 ml @ 100 mls/hr 1X ONCE IV 12/29/20 09:00 12/29/20 09:59 DC 12/29/20 09:02 Magnesium Sulfate 50 ml @ 25 mls/hr 1X ONCE IV 12/29/20 09:00 12/29/20 10:59 DC 12/29/20 10:48 Ceftriaxone Sodium (Rocephin) 1 gm Q24H IVP 12/29/20 11:00 12/29/20 12:09 Fentanyl Citrate (Fentanyl 2ml Vial) 25 mcg PRN Q2HR PRN IVP PAIN 12/29/20 11:00 12/29/20 23:03 Justifications for Admission Other Justification YADIRA CARRILLO MD Dec 30, 2020 08:19
--- NOTE | 2020-12-30 09:08 | PDOC ---
DATE OF SERVICE DATE: 12/30/20 TIME: 09:07 SUBJECTIVE ROS Extubated OBJECTIVE Vital Signs Vital Signs Date Time Temp Pulse Resp B/P (MAP) Pulse Ox O2 Delivery O2 Flow Rate FiO2 12/30/20 06:00 93 22 136/70 (92) 100 Nasal Cannula 3.0 12/30/20 04:00 98.2 98.2 I & 0 Intake and Output 12/30/20 07:00 Intake Total 1527 ml Output Total 3620 ml Balance -2093 ml IV Total 1527 ml Output Urine Total 3020 ml Gastric Drainage Total 600 ml PHYSICAL EXAM Physical Exam General: extubated HEENT: Intubated, on MV Neck supple Heart: Regular rate (SR) Abdomen: Soft, BS + Extremities: No cyanosis Skin: No Rash Neuro: Intubated Psych/Mental Status: Unable to assess, intubated, MV Tatum + DIAGNOSIS/ASSESSMENT Assessment & Plan NICK - Post Code /cardiac/ on IV Diuretics/ , Non Oliguric Improving, Supportive care, Monitor ? UTI at presentation- UA positive for Nitrites, wbc 's . Not on Abx. Defer to primary Hyponatremia POA- Pooe PO intake , cardiac, improving slow Hypokalemia - replace HypoMg Replacing S/P Cardiac arrest - PEA arrest on 12/28 Severe and MR on TTE with preserved EF - Family inclining towards TAVR - pending decision Acute exacerbation of congestive heart failure chronic in nature with preserved ejection fraction Bilateral pleural effusions COMMENT/RELEVANT DATA Meds Current Medications Medications (Trade) Dose Ordered Sig/Maren Start Time Stop Time Status Last Admin Dose Admin Acetaminophen (Tylenol) 650 mg PRN Q6HRS PRN 12/27/20 15:00 Acetaminophen/ Hydrocodone Bitart (Lortab 5/325) 1 tab PRN Q4HRS PRN 12/27/20 15:00 Atropine Sulfate (ATROPINE 0.5mg SYRINGE) 0.5 mg STK-MED ONCE 12/28/20 12:00 12/29/20 13:29 DC Bisacodyl (Dulcolax Supp) 10 mg PRN DAILY PRN 12/27/20 15:00 Calcium Chloride (Calcium Chloride) 1,000 mg STK-MED ONCE 12/28/20 12:00 12/29/20 13:29 DC Carvedilol (Coreg) 12.5 mg BIDWMEALS 12/27/20 17:00 12/28/20 12:30 DC 12/28/20 09:32 12.5 MG Ceftriaxone Sodium (Rocephin) 1 gm Q24H 12/29/20 11:00 12/29/20 12:09 1 GM Dextrose (Dextrose 50%-Water Syringe) 12.5 gm PRN Q15MIN PRN 12/27/20 17:30 Dopamine HCl/ Dextrose (DOPamine 400MG/ 250ML PREMIX) 400 mg STK-MED ONCE 12/28/20 12:00 12/29/20 13:29 DC Enoxaparin Sodium (Lovenox 40mg Syringe) 40 mg Q24H 12/27/20 16:00 12/29/20 17:29 40 MG Epinephrine HCl (EPINEPHrine SYRINGE) 4 mg STK-MED ONCE 12/28/20 12:00 12/29/20 13:29 DC Fentanyl Citrate (Fentanyl 2ml Vial) 25 mcg PRN Q2HR PRN 12/29/20 11:00 12/29/20 23:03 25 MCG Furosemide (Lasix) 40 mg [id number] 12/27/20 16:00 12/29/20 14:46 40 MG Info (Icu Electrolyte Protocol) 1 ea CONT PRN PRN 12/28/20 13:15 Info (Non-Icu Electrolyte Protocol) 1 ea PRN DAILY PRN 12/27/20 15:00 Cancel Insulin Human Lispro (HumaLOG) 0-5 UNITS Q6HRS 12/29/20 00:00 Lactulose (Lactulose) 20 gm PRN Q12HR PRN 12/27/20 15:00 Losartan Potassium (Cozaar) 50 mg DAILY 12/28/20 09:00 12/28/20 12:30 DC 12/28/20 09:32 50 MG Magnesium Hydroxide (Milk Of Magnesia) 2,400 mg PRN Q12HR PRN 12/27/20 15:00 Magnesium Sulfate 50 ml @ 25 mls/hr 1X ONCE 12/29/20 09:00 12/29/20 10:59 DC 12/29/20 10:48 25 MLS/HR Midazolam HCl (Versed) 5 mg STK-MED ONCE 12/28/20 12:00 12/29/20 13:29 DC Morphine Sulfate (Morphine Sulfate) 1 mg PRN Q1HR PRN 12/27/20 15:00 12/29/20 10:43 DC Norepinephrine Bitartrate 8 mg/ Dextrose 258 ml @ 16.873 mls/ hr CONT PRN 12/28/20 13:15 12/30/20 03:21 10.124 MLS/HR Ondansetron HCl (Zofran) 4 mg PRN Q6HRS PRN 12/27/20 15:00 Potassium Chloride/Water 100 ml @ 100 mls/hr 1X ONCE 12/29/20 09:00 12/29/20 09:59 DC 12/29/20 09:02 100 MLS/HR Prochlorperazine (Compazine) 25 mg PRN Q12HR PRN 12/27/20 15:00 Senna/Docusate Sodium (Senna Plus) 1 tab BID 12/27/20 21:00 12/28/20 21:29 1 TAB Sodium Bicarbonate (Sodium Bicarb Adult 8.4% Syr) 50 meq STK-MED ONCE 12/28/20 12:00 12/29/20 13:29 DC Sodium Chloride 1,000 ml @ 0 mls/hr Q0M 12/28/20 15:30 Sodium Chloride (Normal Saline Flush) 3 ml QSHIFT PRN 12/27/20 15:00 Zolpidem Tartrate (Ambien) 5 mg PRN QHS PRN 12/27/20 15:00 12/29/20 10:43 DC Lab Laboratory Tests Test 12/29/20 12:13 12/29/20 15:26 12/29/20 17:30 12/29/20 23:53 Glucose (Fingerstick) 173 mg/dL (70-99) 195 mg/dL (70-99) 162 mg/dL (70-99) O2 Saturation 97 % (92-99) Arterial Blood pH 7.49 (7.35-7.45) Arterial Blood pCO2 at Patient Temp 32 mmHg (35-46) Arterial Blood pO2 at Patient Temp 92 mmHg (65-108) Arterial Blood HCO3 24 mmol/L (21-28) Arterial Blood Base Excess 1 mmol/L (-3-3) FiO2 40/ps 8/5 Test 12/30/20 05:34 12/30/20 06:25 Glucose (Fingerstick) 160 mg/dL (70-99) Sodium Level 125 mmol/L (136-145) Potassium Level 3.3 mmol/L (3.5-5.1) Chloride Level 92 mmol/L (98-107) Carbon Dioxide Level 28 mmol/L (21-32) Anion Gap 5 (6-14) Blood Urea Nitrogen 23 mg/dL (7-20) Creatinine 1.3 mg/dL (0.6-1.0) Estimated GFR (Cockcroft-Gault) 39.2 Glucose Level 169 mg/dL (70-99) Calcium Level 8.6 mg/dL (8.5-10.1) Results All relevant outside records, renal labs, imaging studies, telemetry/EKG's were reviewed. Justicifation of Admission Dx: Justifications for Admission: Justification of Admission Dx: Yes REYNALDO WALLER MD Dec 30, 2020 09:08
[2020-12-30] MEDS: FUROSEMIDE 40 MG/4 ML VIAL. IVP SCH ×2 (09:55→16:26)
[2020-12-30] MEDS: cefTRIAXone IV Push 1 GM VIAL. IVP SCH (09:55)
[2020-12-30] MEDS ORDERED: POTASSIUM CHLORIDE 20MEQ 100 ML IV ONE (10:00)
--- NOTE | 2020-12-30 10:30 | PDOC ---
PULMONARY PROGRESS NOTES DATE: 12/30/20 TIME: 10:25 Subjective extubated 12/29 now on 3 liters N/C no overnight events remains on dopamine and levo Vitals Vital Signs Date Time Temp Pulse Resp B/P (MAP) Pulse Ox O2 Delivery O2 Flow Rate FiO2 12/30/20 08:00 Nasal Cannula 3.0 12/30/20 06:00 93 22 136/70 (92) 100 12/30/20 04:00 98.2 98.2 ROS: No Nausea, No Chest Pain, No Abdominal Pain, No Increase Cough General: Alert, Oriented X4 Lungs: Crackles Cardiovascular: S1, S2 Abdomen: Soft Neuro Exam: Alert Extremities: No Edema, Other (BLE ) Skin: Warm, Dry Labs Laboratory Tests Test 12/28/20 13:15 12/28/20 13:40 12/29/20 00:04 12/29/20 05:52 Sodium Level 121 mmol/L (136-145) Potassium Level 3.6 mmol/L (3.5-5.1) Chloride Level 89 mmol/L (98-107) Carbon Dioxide Level 21 mmol/L (21-32) Anion Gap 11 (6-14) Blood Urea Nitrogen 23 mg/dL (7-20) Creatinine 1.3 mg/dL (0.6-1.0) Estimated GFR (Cockcroft-Gault) 39.2 BUN/Creatinine Ratio 18 (6-20) Glucose Level 213 mg/dL (70-99) Calcium Level 9.2 mg/dL (8.5-10.1) Total Bilirubin 1.3 mg/dL (0.2-1.0) Aspartate Amino Transf (AST/SGOT) 45 U/L (15-37) Alanine Aminotransferase (ALT/SGPT) 30 U/L (14-59) Alkaline Phosphatase 81 U/L (46-116) Troponin I Quantitative 0.031 ng/mL (0.000-0.055) Total Protein 6.5 g/dL (6.4-8.2) Albumin 3.1 g/dL (3.4-5.0) Albumin/Globulin Ratio 0.9 (1.0-1.7) O2 Saturation 99 % (92-99) Arterial Blood pH 7.40 (7.35-7.45) Arterial Blood pCO2 at Patient Temp 35 mmHg (35-46) Arterial Blood pO2 at Patient Temp 137 mmHg (65-108) Arterial Blood HCO3 22 mmol/L (21-28) Arterial Blood Base Excess -3 mmol/L (-3-3) Oxyhemoglobin 97.5 % Methemoglobin 0.5 % (0.0-1.9) Carbon Monoxide, Quantitative 0.6 % (0.0-1.9) FiO2 100 Glucose (Fingerstick) 190 mg/dL (70-99) 183 mg/dL (70-99) Test 12/29/20 08:00 12/29/20 08:10 12/29/20 12:13 12/29/20 15:26 O2 Saturation 99 % (92-99) 97 % (92-99) Arterial Blood pH 7.46 (7.35-7.45) 7.49 (7.35-7.45) Arterial Blood pCO2 at Patient Temp 32 mmHg (35-46) 32 mmHg (35-46) Arterial Blood pO2 at Patient Temp 158 mmHg (65-108) 92 mmHg (65-108) Arterial Blood HCO3 22 mmol/L (21-28) 24 mmol/L (21-28) Arterial Blood Base Excess -1 mmol/L (-3-3) 1 mmol/L (-3-3) FiO2 70/vent 40/ps 8/5 Sodium Level 123 mmol/L (136-145) Potassium Level 3.4 mmol/L (3.5-5.1) Chloride Level 90 mmol/L (98-107) Carbon Dioxide Level 26 mmol/L (21-32) Anion Gap 7 (6-14) Blood Urea Nitrogen 22 mg/dL (7-20) Creatinine 1.4 mg/dL (0.6-1.0) Estimated GFR (Cockcroft-Gault) 36.0 Glucose Level 176 mg/dL (70-99) Calcium Level 8.8 mg/dL (8.5-10.1) Magnesium Level 1.7 mg/dL (1.8-2.4) Glucose (Fingerstick) 173 mg/dL (70-99) Test 12/29/20 17:30 12/29/20 23:53 12/30/20 05:34 12/30/20 06:25 Glucose (Fingerstick) 195 mg/dL (70-99) 162 mg/dL (70-99) 160 mg/dL (70-99) Sodium Level 125 mmol/L (136-145) Potassium Level 3.3 mmol/L (3.5-5.1) Chloride Level 92 mmol/L (98-107) Carbon Dioxide Level 28 mmol/L (21-32) Anion Gap 5 (6-14) Blood Urea Nitrogen 23 mg/dL (7-20) Creatinine 1.3 mg/dL (0.6-1.0) Estimated GFR (Cockcroft-Gault) 39.2 Glucose Level 169 mg/dL (70-99) Calcium Level 8.6 mg/dL (8.5-10.1) Laboratory Tests Test 12/29/20 12:13 12/29/20 15:26 12/29/20 17:30 12/29/20 23:53 Glucose (Fingerstick) 173 mg/dL (70-99) 195 mg/dL (70-99) 162 mg/dL (70-99) O2 Saturation 97 % (92-99) Arterial Blood pH 7.49 (7.35-7.45) Arterial Blood pCO2 at Patient Temp 32 mmHg (35-46) Arterial Blood pO2 at Patient Temp 92 mmHg (65-108) Arterial Blood HCO3 24 mmol/L (21-28) Arterial Blood Base Excess 1 mmol/L (-3-3) FiO2 40/ps 8/5 Test 12/30/20 05:34 12/30/20 06:25 Glucose (Fingerstick) 160 mg/dL (70-99) Sodium Level 125 mmol/L (136-145) Potassium Level 3.3 mmol/L (3.5-5.1) Chloride Level 92 mmol/L (98-107) Carbon Dioxide Level 28 mmol/L (21-32) Anion Gap 5 (6-14) Blood Urea Nitrogen 23 mg/dL (7-20) Creatinine 1.3 mg/dL (0.6-1.0) Estimated GFR (Cockcroft-Gault) 39.2 Glucose Level 169 mg/dL (70-99) Calcium Level 8.6 mg/dL (8.5-10.1) Medications Active Scripts Medications Dose Route/Sig Max Daily Dose Days Date Category Klor-Con 10 (Potassium Chloride) 10 Meq Tablet.er 1 Tab PO DAILY 30 12/27/20 Reported Lasix (Furosemide) 40 Mg Tablet 1 Tab PO DAILY 30 12/27/20 Reported Metformin Hcl Er (Metformin Hcl) 500 Mg Tab.er.24h 500 Mg PO DAILYWBKFT 12/27/20 Reported Losartan Potassium 100 Mg Tablet 100 Mg PO DAILY 12/27/20 Reported Comments CXR IMPRESSION: 1. Prominent interstitial markings, which may reflect interstitial edema. 2. Small bilateral pleural effusions. Impression . IMPRESSION: 1. Acute hypoxemic respiratory failure secondary to acute cardiopulmonary arrest-- now extubated on 12/29/20 2. Acute on chronic diastolic heart failure. 3. Severe . and MR 4. Accelerated hypertension. 5. Hyponatremia. 6. History of tobacco dependent, possible chronic obstructive pulmonary disease. 7. ALESIA revealing severe , MR and 50% ejection fraction. 8. Negative SARS-CoV-2. 9. Chronic renal insufficiency. 10. Protein malnutrition. Plan . PLAN: Continue supplemental oxygen extubated 12/29/20-- now on 3 liters N/C Continue pressors as needed, dopamine and levo Follow CXR PRN, diruesis per cardiology Follow cardiology recs Follow nephro recs continue Rocephin NEBS PRN PT/OT/ST Social work for D/C planning DVT/GI PPX D/W Rn and RT GUILLAUME RAI MD Dec 30, 2020 10:30
--- NOTE | 2020-12-30 12:45 | PDOC ---
JACOB STALLWORTH METAL LOADER 12/30/20 1245: CARDIO Progress Notes Date and Time Date of Service 12/30/2020 Time of Evaluation 0950 Subjective Subjective: No Chest Pain, No Palpitations, Other (throat is sore) Vitals Vitals Vital Signs Date Time Temp Pulse Resp B/P (MAP) Pulse Ox O2 Delivery O2 Flow Rate FiO2 12/30/20 11:00 92 22 91/63 (72) 98 Nasal Cannula 3.0 12/30/20 08:00 98.1 98.1 Weight Weight [ ] Input and Output Intake and Output Intake and Output 12/30/20 07:00 Intake Total 1527 ml Output Total 3620 ml Balance -2093 ml IV Total 1527 ml Output Urine Total 3020 ml Gastric Drainage Total 600 ml Laboratory Labs Laboratory Tests Test 12/29/20 15:26 12/29/20 17:30 12/29/20 23:53 12/30/20 05:34 O2 Saturation 97 % (92-99) Arterial Blood pH 7.49 (7.35-7.45) Arterial Blood pCO2 at Patient Temp 32 mmHg (35-46) Arterial Blood pO2 at Patient Temp 92 mmHg (65-108) Arterial Blood HCO3 24 mmol/L (21-28) Arterial Blood Base Excess 1 mmol/L (-3-3) FiO2 40/ps 06/29 Glucose (Fingerstick) 195 mg/dL (70-99) 162 mg/dL (70-99) 160 mg/dL (70-99) Test 12/30/20 06:25 12/30/20 12:11 Sodium Level 125 mmol/L (136-145) Potassium Level 3.3 mmol/L (3.5-5.1) Chloride Level 92 mmol/L (98-107) Carbon Dioxide Level 28 mmol/L (21-32) Anion Gap 5 (6-14) Blood Urea Nitrogen 23 mg/dL (7-20) Creatinine 1.3 mg/dL (0.6-1.0) Estimated GFR (Cockcroft-Gault) 39.2 Glucose Level 169 mg/dL (70-99) Calcium Level 8.6 mg/dL (8.5-10.1) Glucose (Fingerstick) 178 mg/dL (70-99) Microbiology Micro Microbiology 12/27/20 Urine Culture - Final, Complete 12/27/20 Antimicrobic Susceptibility - Final, Complete Physical Exam HEENT: Neck Supple W Full Motion Chest: Symmetric LUNGS: Other (basilar crackles) Heart: RRR (SR) Abdomen: Soft N/T Extremities: No Calf Tenderness, Other (2-3+ bilateral LE pittiing edema) Neurology: alert, oriented, follow commands Assessment Assessment 1. Acute on chronic diastolic CHF: improving. EF preserved 2. Polyvalvular disease; critical aortic stenosis and severe mitral regurgitation. 3. Acute respiratory failure secondary to cardiac arrest; bradycardia, PEA. No VT/VF. approximately [address] [place] prior to ROSC. Post extubation. No further bradyarrhythmias 4. Accelerated HTN: controlled 5. Hyperlipidemia; intolerant to statins 6. Diabetes, II: per PCP 7. Pulm HTN; PAP 77 mmHg 8. NICK: Cr stable 9. PUI; COVID negative 10. UTI: per PCP Recommendations Good UOP overnight. Cr is stable. Lasix therapy. She is now currently AOx3 and complaining of sore throat. Family meeting in regards to conservative versus aggressive measures. Son would like patient to make decision. Will discuss further with pt over the weekend in regards to treatment options. Conservative mgmt, medical therapy with Hospice services versus aggressive measures with referral to tertiary center for urgent TAVR. Continue low dose dopamine for now and will titrate off tomorrow and monitor rhythm. Titrate off levophed as BP allows Replace K and Mg as warranted Start on zetia. Future [id number] Unable to place on BB due to issues with bradycardia. Awaiting swallow eval Justicifation of Admission Dx: Justifications for Admission: Justification of Admission Dx: Yes MICAELA GARCIA MD 12/31/20 0720: CARDIO Progress Notes Plan Plan Late entry for 12/30/20 Pt. seen and examined. Spoke to [facility], plan for transfer there for TAVR eval JACOB STALLWORTH APRN Dec 30, 2020 12:45 MICAELA GARCIA MD Dec 31, 2020 07:20
[2020-12-30] MEDS ORDERED: ENOX40DI3 SQ (13:19)
[2020-12-30] MEDS ORDERED: CEFTRIAXONE SODIUM IVP (13:19)
[2020-12-30] MEDS ORDERED: FURO10VI IVP (13:19)
[2020-12-30] MEDS ORDERED: ACET650S11 RC (13:19)
[2020-12-30] MEDS ORDERED: BISA10SU4 PR (13:19)
[2020-12-30] MEDS ORDERED: ONDA4VIA7 IVP (13:19)
[2020-12-30] MEDS ORDERED: [UNRECOGNIZED DRUG - CODE] IV (13:19)
[2020-12-30] MEDS ORDERED: INSU100V35 SQ (13:19)
--- NOTE | 2020-12-30 13:21 | SNU/HH DC ---
DISCHARGE ORDERS DISCHARGE INFORMATION: DISCHARGE DATE: Dec 30, 2020 FINAL DIAGNOSIS Problems Medical Problems: (1) Acute pulmonary edema Status: Acute (2) Anasarca Status: Acute (3) Hyponatremia Status: Acute CONDITION ON DISCHARGE: Guarded CODE STATUS: Code Status: Full POST DISCHARGE ORDERS: ACTIVITY ORDERS: Bedrest today DIET AFTER DISCHARGE: NPO WOUND/INCISION CARE: Ice to area for comfort CHECKS AFTER DISCHARGE: CHECKS AFTER DISCHARGE: Check blood press - daily, Check blood sugar, ac/hs, Check your Temp as needed FOLLOW-UP: PHYSICIAN FOLLOW-UP: CT surgery TREATMENT/EQUIPMENT ORDERS: RESPIRATORY EQUIPMENT NEEDED: Oxygen Physical Therapy For: Evalulation/Treatment Occupational Therapy For: Evaluation/Treatment Speech Language Pathology For: Evaluation/Treatment DISCHARGE MEDICATIONS: Home Meds Active Scripts Acetaminophen (ACETAMINOPHEN SUPP) 650 Mg Supp.rect, 1 SUPP RC PRN Q6HRS PRN for pain or fever for 1 Day, #4 SUPP 0 Refills Prov:YADIRA CARRILLO MD 12/30/20 [cefTRIAXone IV Push] 1 GM VIAL No Conflict Check, 1 GM IVP Q24H for E. coli UTI for 3 Days, #3 EACH Prov:YADIRA CARRILLO MD 12/30/20 Dopamine HCl in Dextrose 5 % (Dopamine 400 mg/250 ml-D5w Bag) 400 Mg/250 Ml Plast..bag, 400 MG IV CONT PRN for hypotension for 30 Days, #30 EACH Prov:YADIRA CARRILLO MD 12/30/20 Enoxaparin Sodium (ENOXAPARIN SODIUM) 40 Mg/0.4 Ml Disp.syrin, 40 MG SQ Q24H for DVT ppx for 30 Days, #30 DIS.SYR Prov:YADIRA CARRILLO MD 12/30/20 Furosemide (FUROSEMIDE) 10 Mg/1 Ml Vial, 40 MG IVP BID92 for CHF for 30 Days, #60 EACH Prov:YADIRA CARRILLO MD 12/30/20 Bisacodyl (BISACODYL) 10 Mg Supp.rect, 10 MG TN PRN DAILY PRN for CONSTIPATION for 30 Days, #30 SUPP.RECT Prov:YADIRA CARRILLO MD 12/30/20 Ondansetron Hcl/Pf (ONDANSETRON HCL 4 MG/2 ML VIAL) 4 Mg/2 Ml Vial, 4 MG IVP PRN Q6HRS PRN for NAUSEA/VOMITING for 30 Days, #30 EACH Prov:YADIRA CARRILLO MD 12/30/20 Insulin Lispro (Admelog) 100 Unit/1 Ml Vial, 0 UNITS SQ Q6HRS for DM2 for 30 Days, #30 EACH Prov:YADIRA CARRILLO MD 12/30/20 Discontinued Reported Medications Potassium Chloride (KLOR-CON 10) 10 Meq Tablet.er, 1 TAB PO DAILY for supplement for 30 Days, #30 TAB 0 Refills 12/27/20 Furosemide (LASIX) 40 Mg Tablet, 1 TAB PO DAILY for CHF for 30 Days, #30 TAB 0 Refills 12/27/20 Metformin Hcl (METFORMIN HCL ER) 500 Mg Tab.er.24h, 500 MG PO DAILYWBKFT for ANTI-DIABETIC, TAB 0 Refills 12/27/20 Losartan Potassium (LOSARTAN POTASSIUM) 100 Mg Tablet, 100 MG PO DAILY for HYPERTENSION, TAB 12/27/20 YADIRA CARRILLO MD Dec 30, 2020 13:21
[2020-12-30] MEDS ORDERED: EZETIMIBE 10 MG TABLET. PO SCH (13:30)
--- NOTE | 2020-12-30 13:54 | PDOC3 ---
Discharge Summary Visit Information Date of Admission: Dec 27, 2020 Date of Discharge: Dec 30, 2020 Admitting Diagnosis: Acute respiratory failure with hypoxia Final Diagnosis Problems Medical Problems: (1) Acute pulmonary edema Status: Acute (2) Anasarca Status: Acute (3) Hyponatremia Status: Acute Brief Hospital Course Allergies Allergies Coded Allergies Type Severity Reaction Last Updated Verified No Known Drug Allergies 12/27/20 No Vital Signs Vital Signs Date Time Temp Pulse Resp B/P (MAP) Pulse Ox O2 Delivery O2 Flow Rate FiO2 12/30/20 11:00 92 22 91/63 (72) 98 Nasal Cannula 3.0 12/30/20 08:00 98.1 98.1 Lab Results Laboratory Tests Test 12/28/20 13:40 12/29/20 00:04 12/29/20 05:52 12/29/20 08:00 O2 Saturation 99 % (92-99) 99 % (92-99) Arterial Blood pH 7.40 (7.35-7.45) 7.46 (7.35-7.45) Arterial Blood pCO2 at Patient Temp 35 mmHg (35-46) 32 mmHg (35-46) Arterial Blood pO2 at Patient Temp 137 mmHg (65-108) 158 mmHg (65-108) Arterial Blood HCO3 22 mmol/L (21-28) 22 mmol/L (21-28) Arterial Blood Base Excess -3 mmol/L (-3-3) -1 mmol/L (-3-3) Oxyhemoglobin 97.5 % Methemoglobin 0.5 % (0.0-1.9) Carbon Monoxide, Quantitative 0.6 % (0.0-1.9) FiO2 100 70/vent Glucose (Fingerstick) 190 mg/dL (70-99) 183 mg/dL (70-99) Test 12/29/20 08:10 12/29/20 12:13 12/29/20 15:26 12/29/20 17:30 Sodium Level 123 mmol/L (136-145) Potassium Level 3.4 mmol/L (3.5-5.1) Chloride Level 90 mmol/L (98-107) Carbon Dioxide Level 26 mmol/L (21-32) Anion Gap 7 (6-14) Blood Urea Nitrogen 22 mg/dL (7-20) Creatinine 1.4 mg/dL (0.6-1.0) Estimated GFR (Cockcroft-Gault) 36.0 Glucose Level 176 mg/dL (70-99) Calcium Level 8.8 mg/dL (8.5-10.1) Magnesium Level 1.7 mg/dL (1.8-2.4) Glucose (Fingerstick) 173 mg/dL (70-99) 195 mg/dL (70-99) O2 Saturation 97 % (92-99) Arterial Blood pH 7.49 (7.35-7.45) Arterial Blood pCO2 at Patient Temp 32 mmHg (35-46) Arterial Blood pO2 at Patient Temp 92 mmHg (65-108) Arterial Blood HCO3 24 mmol/L (21-28) Arterial Blood Base Excess 1 mmol/L (-3-3) FiO2 40/ps 8/5 Test 12/29/20 23:53 12/30/20 05:34 12/30/20 06:25 12/30/20 12:11 Glucose (Fingerstick) 162 mg/dL (70-99) 160 mg/dL (70-99) 178 mg/dL (70-99) Sodium Level 125 mmol/L (136-145) Potassium Level 3.3 mmol/L (3.5-5.1) Chloride Level 92 mmol/L (98-107) Carbon Dioxide Level 28 mmol/L (21-32) Anion Gap 5 (6-14) Blood Urea Nitrogen 23 mg/dL (7-20) Creatinine 1.3 mg/dL (0.6-1.0) Estimated GFR (Cockcroft-Gault) 39.2 Glucose Level 169 mg/dL (70-99) Calcium Level 8.6 mg/dL (8.5-10.1) Laboratory Tests Test 12/29/20 15:26 12/29/20 17:30 12/29/20 23:53 12/30/20 05:34 O2 Saturation 97 % (92-99) Arterial Blood pH 7.49 (7.35-7.45) Arterial Blood pCO2 at Patient Temp 32 mmHg (35-46) Arterial Blood pO2 at Patient Temp 92 mmHg (65-108) Arterial Blood HCO3 24 mmol/L (21-28) Arterial Blood Base Excess 1 mmol/L (-3-3) FiO2 40/ps 8 Glucose (Fingerstick) 195 mg/dL (70-99) 162 mg/dL (70-99) 160 mg/dL (70-99) Test 12/30/20 06:25 12/30/20 12:11 Sodium Level 125 mmol/L (136-145) Potassium Level 3.3 mmol/L (3.5-5.1) Chloride Level 92 mmol/L (98-107) Carbon Dioxide Level 28 mmol/L (21-32) Anion Gap 5 (6-14) Blood Urea Nitrogen 23 mg/dL (7-20) Creatinine 1.3 mg/dL (0.6-1.0) Estimated GFR (Cockcroft-Gault) 39.2 Glucose Level 169 mg/dL (70-99) Calcium Level 8.6 mg/dL (8.5-10.1) Glucose (Fingerstick) 178 mg/dL (70-99) Brief Hospital Course Ms Webber is an 80-year-old female with past medical history of DM2, ex-smoker, HTN, HLD, severe aortic stenosis, and preserved EF congestive heart failure who had been in her usual state of health until approximately 3 to 4 days prior to her admission when she started complaining of worsening dyspnea and lower extremity edema. At baseline she lives alone and is able to garden and mow her own lawn, during the winter has been shoveling her own snow. She reported progressive orthopnea no paroxysmal nocturnal dyspnea no chest pain no palpitations. The patient was seen in the outpatient setting by her family physician who put her on most likely diuretics she does not remember the name of the medicine she received (furosemide). Despite intervention in the outpatient setting her symptoms got worse she denies any fever chills no upper respiratory tract infection symptoms no generalized malaise no cough or sputum production no pleurisy has been reported. She denies abdominal discomfort nausea vomiting or diarrhea, she has been adherent to her medications but most likely in her case dietary transgression is the culprit. She does not cook for herself anymore since she lives by herself and most likely eats frozen meals and prepackaged prepared food and sodium rich soups that probably has put her in failure. She has history of aortic stenosis as well her last echocardiogram was reported 5 years ago with a preserved ejection fraction of 55% and severe with valve diameter 1cm2. The patient denied any focal neurological deficits no dizziness no seizure-like activity no syncopal episodes no other complaints voiced. EKG on admission with right bundle branch block. BNP 2856, sodium 121, troponin negative. Admitted for further treatment and was started on IV lasix with cardiology consultation. Day 2 was 12/28: Had a PEA arrest x2 s/p ROSC after 3x epinephrine and more than 10 minutes of CPR, Transferred to ICU on dopamine and levophed Day 3 was 12/29: Seen in ICU on ventilator. No further arrest overnight. Labs with K 3.4 and Mg 1.7, Na improved. Critical found on echo, also severe MR. Weaned off sedation and extubated late in the day with family bedside. Day 4, 12/30: No events overnight. K3.3. NA 125. Patient recalls no events of the code. She is concerned but after d/w family wishes to have referral for TAVR consideration given her critical . Still requiring pressor support, weaned off levophed, still requiring dopamine. Given that severe critical aortic stenosis with coexisting mitral regurgitation with symptomatic elderly patients the survival benefit she is high risk considering her recent code and does not have significant tricuspid regurgitation would be appropriate for urgent evaluation by qualified surgeon. Consults: Nephrology, Cardiology, Pulmonology Problem list: Cardiac arrest - PEA arrest Acute hypoxic respiratory failure - due to CHF, , possible underlying mild COPD. Easily extubated after arrest. COVID 19 testing negative. Acute exacerbation of congestive heart failure chronic in nature with preserved ejection fraction Severe hyponatremia - likely hypervolemic and nutritional, slightly improving, nephrology following DM2 with Hyperglycemia - on sliding scale, repeat A1c is 6.4 Bilateral pleural effusions - noted on CXR, echo Critical aortic stenosis - Calculated aortic valve area is 0.27 cm2 with maximum pressure gradient of 111 mmHg and mean pressure gradient of 68 mmHg. Doppler and color-flow analysis revealed critical aortic stenosis. Severe mitral regurgitation. Mild tricuspid regurgitation Severe pulmonary hypertension. The PA pressure was estimated at 77 mmHg. UTI - pansensitive E. 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 Plan to coordinate transfer to tertiary care center with TAVR capabilities per d/w family and cardiology. With patient arrest would not be stable or suitable for discharge prior to CT surgery evaluation. CC time 49 minutes Discharge Information Condition at Discharge: Stable Follow Up: Weeks Disposition/Orders: D/C to Another Facility Scheduled Enoxaparin Sodium (Enoxaparin Sodium) 40 Mg/0.4 Ml Disp.syrin, 40 MG SQ Q24H for DVT ppx for 30 Days, #30 Prescribed by: YADIRA CARRILLO MD on 12/30/20 131 Furosemide (Furosemide) 10 Mg/1 Ml Vial, 40 MG IVP [id number] for CHF for 30 Days, #60 Prescribed by: YADIRA CARRILLO MD on 12/30/20 1319 Insulin Lispro (Admelog) 100 Unit/1 Ml Vial, 0 UNITS SQ Q6HRS for DM2 for 30 Days, #30 Prescribed by: YADIRA CARRILLO MD on 12/30/20 1319 [Ceftriaxone Sodium] 1 GM VIAL, 1 GM IVP Q24H for E. coli UTI for 3 Days, #3 Prescribed by: YADIRA CARRILLO MD on 12/30/20 1319 Scheduled PRN Acetaminophen (Acetaminophen Supp) 650 Mg Supp.rect, 1 SUPP RC PRN Q6HRS PRN for pain or fever for 1 Days, #4 Ref 0 Prescribed by: YADIRA CARRILLO MD on 12/30/209 Bisacodyl (Bisacodyl) 10 Mg Supp.rect, 10 MG NC PRN DAILY PRN for CONSTIPATION for 30 Days, #30 Prescribed by: YADIRA CARRILLO MD on 12/30/20 1319 Dopamine HCl in Dextrose 5 % (Dopamine 400 mg/250 ml-D5w Bag) 400 Mg/250 Ml Plast..bag, 400 MG IV CONT PRN for hypotension for 30 Days, #30 Prescribed by: YADIRA CARRILLO MD on 12/30/20 1319 Ondansetron Hcl/Pf (Ondansetron Hcl 4 Mg/2 Ml Vial) 4 Mg/2 Ml Vial, 4 MG IVP PRN Q6HRS PRN for NAUSEA/VOMITING for 30 Days, #30 Prescribed by: YADIRA CARRILLO MD on 12/30/20 1319 Discontinued Medications Furosemide (Lasix) 40 Mg Tablet, 1 TAB PO DAILY for CHF for 30 Days, #30 Ref 0 (Reported) Entered as Reported by: OPAL JURADO on 12/27/201815 Last Taken: Unknown Dose on Unknown Date & Time Last Action: New Order on 12/27/201815 by OPAL JURADO Losartan Potassium (Losartan Potassium) 100 Mg Tablet, 100 MG PO DAILY for HYPERTENSION, (Reported) Entered as Reported by: OPAL JURADO on 12/27/201815 Last Taken: Unknown Dose on Unknown Date & Time Last Action: New Order on 12/27/201815 by OPAL JURADO Metformin Hcl (Metformin Hcl Er) 500 Mg Tab.er.24h, 500 MG PO DAILYWBKFT for ANTI-DIABETIC, Ref 0 (Reported) Entered as Reported by: OPAL JURADO on 12/27/201815 Last Taken: Unknown Dose on Unknown Date & Time Last Action: New Order on 12/27/201815 by OPAL JURADO Potassium Chloride (Klor-Con 10) 10 Meq Tablet.er, 1 TAB PO DAILY for supplement for 30 Days, #30 Ref 0 (Reported) Entered as Reported by: OPAL JURADO on 12/27/201815 Last Taken: Unknown Dose on Unknown Date & Time Last Action: New Order on 12/27/201815 by OPAL JURADO Justicifation of Admission Dx: Justifications for Admission: Justification of Admission Dx: Yes YADIRA CARRILLO MD Dec 30, 2020 13:54
[2020-12-30] MEDS ORDERED: AMINO AC 3%/ELECTROLYTE/GLYCER 1,000 ML IV SCH (14:00)
[2020-12-30] MEDS: ENOXAPARIN 40 MG/0.4 ML SYRINGE. SQ SCH (16:34)
--- NOTE | 2020-12-30 17:54 | NUR ---
Nursing Note Pt transferred to [facility] [address] via EMS. Pt transferred with Dopamine transfusing at 5mcg through right IJ. Pt on 3LNC. Report called to CHANNING Llanos. Family notified of transfer.
== END 2020-12-30 17:55 | disposition short-term general hospital (02) | DRG 291 ==
LOC: ER 12:11 → 2 SOUTH 14:21 → 1 WEST ICU 12-28 13:09
PROVIDERS: ADMIT Internal Medicine; ATTEND Internal Medicine
PROC: 5A1945Z Respiratory Ventilation, 24-96 Consecutive Hours (ICD-10-PCS; principal; 2020-12-28)
PROC: 5A12012 Performance of Cardiac Output, Single, Manual (ICD-10-PCS; 2020-12-28)
PROC: 02HV33Z Insertion of Infusion Device into Superior Vena Cava, Percutaneous Approach (ICD-10-PCS; 2020-12-28)
PROC: B548ZZA Ultrasonography of Superior Vena Cava, Guidance (ICD-10-PCS; 2020-12-28)
PROC: 0BH17EZ Insertion of Endotracheal Airway into Trachea, Via Natural or Artificial Opening (ICD-10-PCS; 2020-12-28)
DX: I13.0 Hypertensive heart and chronic kidney disease with heart failure and stage 1 through stage 4 chronic kidney disease, or unspecified chronic kidney disease (principal); J96.01 Acute respiratory failure with hypoxia; I46.9 Cardiac arrest, cause unspecified; I50.43 Acute on chronic combined systolic (congestive) and diastolic (congestive) heart failure; E46 Unspecified protein-calorie malnutrition; E87.1 Hypo-osmolality and hyponatremia; N17.9 Acute kidney failure, unspecified; N39.0 Urinary tract infection, site not specified; B96.20 Unspecified Escherichia coli [E. coli] as the cause of diseases classified elsewhere; E11.22 Type 2 diabetes mellitus with diabetic chronic kidney disease; E11.65 Type 2 diabetes mellitus with hyperglycemia; E78.5 Hyperlipidemia, unspecified; E83.42 Hypomagnesemia; E87.6 Hypokalemia; I08.0 Rheumatic disorders of both mitral and aortic valves; I27.20 Pulmonary hypertension, unspecified; I44.1 Atrioventricular block, second degree; I45.10 Unspecified right bundle-branch block; N18.30 Chronic kidney disease, stage 3 unspecified; Z20.822 Contact with and (suspected) exposure to COVID-19; Z82.49 Family history of ischemic heart disease and other diseases of the circulatory system; Z87.891 Personal history of nicotine dependence; G89.29 Other chronic pain; I49.3 Ventricular premature depolarization
CPT/HCPCS: 36415; 36556; 36600; 71045; 76937; 80048; 80053; 80061; 81001; 82436; 82607; 82805; 82962; 83036; 83735; 83880; 83930; 83935; 84133; 84300; 84439; 84443; 84484; 85025; 87086; 93005; 93306; 94002; 94003; 94760; 96374; 99285; C1892; J0171; J0461; J0696; J1265; J1650; J1815; J1940; J2250; J3010; J3475; J3480; J3490; J7060; U0003; G0378